=== PATIENT | male | born 1965 | race Caucasian/White ===

== ENCOUNTER 2021-10-26 14:37 | Outpatient (CLI) | payer OTHER, SELFPAY ==
--- NOTE | 2021-10-26 14:30 | CRLHL7_ITS ---
For Patients: As a result of the Cures Act, medical imaging exams and procedure reports are released immediately into your electronic medical record. You may view this report before your referring provider. If you have questions, please contact your health care provider. INDICATION: Syncope/stroke. COMPARISON: CT head report 04/22/2021, MRI brain report 10/01/2019. Technique : Multiplanar multisequence MRI of the brain obtained without and with contrast. A total of 15 mL of Dotarem administered IV. Findings : Encephalomalacia and gliosis left perirolandic region and posterior temporal lobe, sequela of remote infarct, with blood breakdown products. No evidence of acute ischemia. No acute intracranial hemorrhage or abnormal extra-axial fluid collection. No midline shift or mass effect. Unremarkable appearance of the mesial temporal lobes/hippocampal structures. No suspicious enhancement. Mild ex vacuo enlargement of the left lateral ventricle atrium. No hydrocephalus. Mild chronic microangiopathy white matter foci. Midline craniocervical anatomy is unremarkable. Major expected flow voids are visualized. No aggressive osseous lesions. Mild mucosal thickening maxillary and ethmoid sinuses. Normal signal throughout the mastoid air cells. Unremarkable orbits. Impression : 1. No acute ischemic, intracranial hemorrhage, focal mass or suspicious enhancement. 2. Unremarkable appearance of the mesial temporal lobes/hippocampi. 3. Old infarcts left perirolandic region and posterior temporal lobe. 4. Mild chronic microangiopathy changes. Dictated by Eden Luciano MD @ 10/28/2021 8:08:41 AM (Electronically Signed)
--- OUTSIDE RECORDS SUMMARY | 2021-10-26 14:43 | XMS_ITS | Continuity of Care Document ---
:1965 Author Organization [facility] Address [address] [place] [address] Phone Care Team Providers Name Role Phone Heri Sales MD Unavailable Unavailable Medications Medication Instructions Dosage Effective Dates (start - stop) Sta tus Comments No Drug Therapy Prescribed Advance Directives Directive Yes / No Effective Date File Name No Information Encounters Encounter Practice Location Reason(s) Diagnoses Date Provider Provide rs Description For Visit Copied on Encounter Hermilo Silvia Henr[facility] Information -[address] , [address], [place], [address], [place], tel:[phone] [place], [id number], [place]. tel:[phone] Family History Family Member Type Diagnosis Age At Onset No Information Payers Payer name Insurance type Covered green party ID Authorization(s ) No Information Social History Type Description Quantity Date Captured Comments Sex Male Smoking Status No Information Chief Complaint And Reason For Visit No Information Reason For Referral Reason For Referral No Information Plan Of Treatment Date Type Action Status No Information History Of Present Illness Encounter Date Complaint History Of Present I llness No Information Functional Status Date Functional Assessment No Information Medications Administered Medication Instructions Dosage Effective Dates (start - stop) Sta tus Comments No Drug Therapy Prescribed Instructions Date Instruction Additional Informati on No Information Assessments Type Assessment Date No Information Patient Care Teams Name Effective Dates (start - stop) Status M embers No Information
--- OUTSIDE RECORDS SUMMARY | 2021-10-26 14:44 | XMS_ITS | Encounter Summary ---
:1965 Author Organization Department [facility] rs Address [address] [place] [address] Support Name Relationship Address Phone CHARLES VALENCIA Unavailable [address] [place] [address] LAKESHIA RIVAS [address] CHARLES VALENCIA Unavailable [facility] LAKESHIA RIVAS [address] ESTHER CEDILLO [place] [address] Insurance Providers: All historical and current Section Date Range: From patient's date of to the date document was created.This section includes the names of all active insurance providers for the patient. Insurance Type of Plan Start of End of Group Member Insurance Policy P atient's Provider Coverage Name Policy Policy Number ID Provider's Ramirez's Relationship Coverage Coverage Telephone Name to Policy Number Ramirez NAFISA FEP PREFERRED FEP Dec 13, [id number] [facility] AIDA VALENCIA PATIENT PROVIDER STAND 2004 [id number] [place] ORGANIZAT IVET ION (PPO) FAMIL Y BC BS [place] PREFERRED FEP Dec 13, [id number] [phone] [facility] AIDA Monson PATIENT FEP PROVIDER STAND 2004 75 3 [place] ORGANIZAT IVET ION (PPO) [place] PREFERRED FEP Dec 13, 105 [id number] AIDA VALENCIA P ATIENT FEP PROVIDER STAND 2004 75 [phone] [place] ORGANIZAT IVET ION (PPO) FAM [place] PREFERRED FEP Dec 13, 105 [id number] AIDA VALENCIA P ATIENT FEP PROVIDER STAND 2004 75 [phone] [place] ORGANIZAT IVET ION (PPO) FAM [place] PREFERRED FEP Dec 13, [id number] AIDA VALENCIA P ATIENT FEP (IA) PROVIDER STAND 2004 75 [phone] [place] ORGANIZAT IVET ION (PPO) FAMIL Y BCBS [place] PREFERRED FEP Dec 13, [id number] [phone] ANNIE ,NE PATIENT FEP PROVIDER STAND 2003 75 5 [place] ORGANIZAT IVET ION (PPO) FAM CAREMARK PRESCRIPT FEPRX Dec 13, [id number] [phone] [place],NE PATIENT FEP ION 2004 0 75 1 AL ([id number]) RX CAREMARK PRESCRIPT FEPRX Dec 13, [id number] [phone] [place] PATIENT FEP ION 2004 0 75 1 AL ([id number]) RX CAREMARK PRESCRIPT FEP Dec 13, [id number] ANNIE,N E PATIENT FEP [id number] ION RX 2004 [id number] AL CAREMARK PRESCRIPT FEPRX Dec 13, [id number] [phone] WILS ON,NE PATIENT FEP RX ION 2004 0 75 1 AL CAREMARK(6 PRESCRIPT FEP Dec 13, [id number] [id number] [place] LSON,NE PATIENT 36669) ION 2004 0 75 1 AL FEP BLUE DENTAL FEP Dec 13, [id number] [phone] ANNIEN E PATIENT DENTAL INSURANCE BLUE 2003 75 3 AL DENTA L FEP BLUE VISION FEP Dec 13, [id number] [phone] ANNIE,N E PATIENT VISION BLUE 2003 75 7 AL VISIO N SELEC July 25 [id number] [phone] Ermias VALENCIA E PATIENT WEST T WNR 2020 [id number] [place] Selected Encounter This section includes the information on record at [place] for the Encounter. Date/Time Encounter Type Encounter Reason Provider Source Description Feb 23, 2021 PRO PHONE TELEPHONE ICD-10-CM F32.9 GERONIMO GERARDO 01:30 PM CALL 11-20 MIN Major depressive J disorder, single episode, unspecified with Provider Comments: Depressive disorder ([facility] [id number]) IHE Encounter Template Text not used by VA Assessments - Encounter Diagnoses This section includes the primary and secondary diagnoses documented for the Encounter. Date/Time Primary/Secondary Diagnosis Name Provider Source Diagnosis Feb 23, 2021 PRIMARY Major depressive GERONIMO GERARDO [place] 01:30 PM disorder, single HCS episode, unspecified Social History: Smoking Status (Most current) and Tobacco Use (All prior to encounter date) This section includes the most current, and the historical, smoking and tobacco-related health factors from the [place] facility where the Encounter took place.Current Smoking Status This section includes the most current smoking, or tobacco-related health factor, from the [place] facility where the Encounter took place. Date/Time Current Smoking Status Comment Facility Jun 09, 2020 02:01 PM VA-TOBACCO USER SOME DAYS [facility] Tobacco Use History This section includes a history of the smoking, or tobacco- related health factors, that were collected on or before the date of the Encounter. The data comes from the [place] facility where the Encounter took place. 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 [facility] Jun 09, 2020 02:01 PM VA-TOBACCO USE MED NO [facility] Jun 09, 2020 02:01 PM VA-TOBACCO USER SOME DAYS [facility] Jun 25, 2019 01:39 PM VA-TOBACCO FORMER USER [facility] Jun 25, 2019 01:39 PM VA-TOBACCO QUIT < 1 YEAR [facility] August 02, 2018 01:49 PM VA-TOBACCO NEVER USED [facility] Jul 07, 2016 10:42 AM LIFETIME NON-TOBACCO USER [facility] Apr 15, 2015 12:38 PM FORMER TOBACCO USE >1Y <7Y [facility] Advance Directives: All historical and current Section Date Range: From patient's date of to the date document was created. This section includes ALL of a patient's completed or amended [place] Advance and Rescinded Directives. The entries below indicate that a directive exists for the patient, but an actual copy is not included with this document. The data comes from all [place] facilities. Date Advance Directives Provider Source Feb 22, 2007 ADVANCE DIRECTIVE JAELYN RAPHAEL [facility] Encounter Notes: All associated encounter notes This section contains the clinical notes associated to the Encounter. Date/Time Encounter Note(s) Provider Source Feb 23, 2021 01:36 PM PHARMACY NOTE: GERONIMO GERARDO [facility] LOCAL TITLE: PHARM MED MONITORING STANDARD TITLE: PHARMACY NOTE DATE OF NOTE: FEB 23, 2021@13:36 ENTRY DATE: FEB 23, 2021@13:36:44 AUTHOR: GERONIMO GERARDO COSIGNER: URGENCY: STATUS: COMPLETED REAL VALENCIA - Verified name, last 4, REASON FOR PHONE CALL/DISCUSSION WITH PATIENT: Phone call with . Shannon zabala was last seen by Dr. Badillo on 06/10/20 for PTSD and MDD with plan: -melatonin 9mg hs sleep -trazodone 50mg HS sleep Phone visit with over the phone to discu ss mental health symptoms and medications. Real reports that he's been doing fine since his last appointment with Dr. Badillo. He notes carmencita t he has been taking his medications as prescribed. He works with [facility] f or psychiatry and works with non-az provider in his hometown for primary care. He is working with his primary care provider on his PTSD symptoms and medications. Real stat es that he is planning to transfer his care down to the [facility]. He does state that he is sleeping fine, feels like the medications help hi m sleep well at night. He notes that he continues to take warfarin, had a stroke in 2019 and has a Factor V disease. He reports that he is taking a number of med ications from his primary care provider, however, he doesn't have his whole med list with him at this time. He states he will send his medication list to us in a secure message. Elisha man is planning to follow up in [place], declines need for follow up appoint ment at this time. Review of Systems: Medication Compliance: Missed or extra doses in the past two weeks: Non e, confirms compliance PRN medication use: New or increased medication side effects: none r eported OBJECTIVE: Mental health diagnosis and relevant diagnosis: Chronic post-traumatic stress disorder following combat Stroke H/O: attempted suicide Depressive disorder Vitals: BP: 138/87 (08/27/2019 13:07) P: 61 (08/27/2019 13:07) RR: 16 (02/19/2019 10:32) TEMP: 99.4 F [37.4 C] (08/27/2019 13:07) WT: 310.2 lb [141.0 kg] (02/19/2019 10:32) HT: 75 in [190.5 cm] (08/16/2018 12:29) BMI: 38.9 Therapeutic Goals: -Minimize potential for medication-related adver se effects -Maintain the lowest possible degree of depressi ve symptomology in order to minimize risk of later relapse -Sustained remission and prevention of relapse -Improvement in interpersonal relationships and psychosocial functioning -Eliminate or improve modifiable suicide risk fa ctors -Enhanced engagement in treatment through self-m anagement strategies (nutrition, exercise, bibliotherapy, sleep hygie ne, tobacco use, caffeine use, alcohol use and abuse, pleasurable activities) ASSESSMENT: 55 y/o MALE with hx of PTSD and MDD- stable at t his time, declines need for therapy changes at this time, [facility]: 1. Medications -Continue melatonin 9mg hs sleep -Continue trazodone 50mg hs sleep 2. Counseling -Patient aware if symptoms worsen or any SI/HI present that they should call 11-11-1, report to [place]-ED or contact the National Suicide Prevention Hotline [2-395-238-zrrs (4339)] and press 1 for s 3. Medication Reconciliation: Medication use rev iewed. Duplicate and non-chronic, medications removed. List o ffered, declined. 4. RTC as scheduled as needed [place] educated, verbalized understanding/compr ehension, and agreed with above plan. Time spent: 15 minutes MRT5 - Allergies/ADRs FACILITY ALLERGY/ADR -------- [facility] NO KNOWN ALLERGIES [facility] No Known Allergies MRR1 - Med Reconciliation INCLUDED IN THIS LIST: Alphabetical list of acti ve outpatient prescriptions dispensed from this [place] (local) and dispensed from another [place] or [facility] facility (remote) as well as inpatient orders (local pending and active), local clinic medications, locally docum ented non-VA medications, and local prescriptions that have or bee n discontinued in the past 90 days. Non-VA Meds Last Documented On: August 08, 2019 NOTE The display of VA prescriptions dispe nsed from another [place] or [facility] facility (remote) is limited to active outpa tient prescription entries matched to National Drug File at the originating site and may not include some items such as investigational drugs, compou nds, etc. NOT INCLUDED IN THIS LIST: Medications self-ente red by the patient into personal health records (i.e. [email or web address].com) are NOT included in this list. Non-VA medications documented outside this [place], remote inpatient orders (regardless of status) and remote clinic medications are NOT included in this list. The patient and provider must always discuss medications the patient is taking, regardless of where the medication was dispensed or obtained. OUTPT MELATONIN 3MG CAP/TAB (Status = Pending) TAKE 3 BY MOUTH AT BEDTIME FOR SLEEP TAKE 1 H OUR PRIOR TO BEDTIME OR DIRECTED BY PROVIDER Login Date: 02/23/21 Qty/Days Supply: 300/90 Refills Ordered: 3 Non-VA SILDENAFIL CITRATE 100MG TAB TAKE ONE TABLET BY MOUTH DIRECTED Medication prescribed by Non-VA provider. OUTPT SUMATRIPTAN SUCCINATE 100MG TAB (Status = Active) TAKE ONE TABLET BY MOUTH DIRECTED AT ONSET O F HEADACHE, MAY REPEAT ONCE IN 2 HOURS IF NO RELIEF MAXIMUM DOS E: 100 MG PER DOSE; 200 MG PER 24 HOURS, LIMIT USE TO <10 DAY S PER MONTH TO AVOID MEDICATION OVERUSE HEADACHE Rx# [id number] Last Released: 01/08/21 Qty/Days Hernandez pply: Rx Expiration Date: 01/06/22 Refills Remainin OUTPT TRAZODONE HCL 50MG TAB (Status = ) TAKE ONE TABLET BY MOUTH AT BEDTIME FOR SLEEP Rx# [id number] Last Released: 01/23/20 Qty/Days Hernandez pply: Rx Expiration Date: 01/20/21 Refills Remainin OUTPT TRAZODONE HCL 50MG TAB (Status = Pending) TAKE ONE TABLET BY MOUTH AT BEDTIME FOR SLEEP Renewed from Rx# [id number] Qty/Days Supply: Login Date: 02/23/21 Refills Ordered: 3 Non-VA WARFARIN (COUMADIN) BRAND NAME TAB TAKE BY MOUTH AT 5PM Patient wants to buy from Non-VA pharmacy. Medication prescribed by Non-VA provi liv. as directed SUPPLIES PBM PharmD Pharmacotherapy Rem V11: PHARMACIST INTERVENTIONS: DEPRESSION Medication monitoring, no dosage change require d, continue to monitor and assess. POST-TRAUMATIC STRESS DISORDER (PTSD) Medication monitoring, no dosage change require d, continue to monitor and assess. /joey/ SHARON BROOKSD CLINICAL PRE FABRICATOR Signed: 02/23/2021 16:30
--- OUTSIDE RECORDS SUMMARY | 2021-10-26 14:44 | XMS_ITS | Encounter Summary ---
:1965 Author Organization [facility] rs Address [address] [place] [address] Support Name Relationship Address Phone CHARLES VALENCIA Unavailable [address] [place] [address] LAKESHIA RIVAS [address] CHARLES VALENCIA Unavailable [address] [place]ESH[place] RIVAS [address] ESTHER [place] [address] Insurance Providers: All historical and current Section Date Range: From patient's date of to the date document was created.This section includes the names of all active insurance providers for the patient. Insurance Type of Plan Start of End of Group Member Insurance Policy P atient's Provider Coverage Name Policy Policy Number ID Provider's Ramirez's Relationship Coverage Coverage Telephone Name to Policy Number Ramirez ANTHAVA FEP PREFERRED FEP Dec 13, [id number] AIDA VALENCIA PATIENT PROVIDER STAND 2004 [id number] AL ORGANIZAT IVET ION (PPO) FAMIL Y BC BS [place] PREFERRED FEP Dec 13, [id number] [phone] [facility] AIDA Monson PATIENT FEP PROVIDER STAND 2004 75 3 AL ORGANIZAT IVET ION (PPO) [place] PREFERRED FEP Dec 13, [id number] AIDA VALENCIA P ATIENT FEP PROVIDER STAND 2004 75 [phone] AL ORGANIZAT IVET ION (PPO) FAM [place] PREFERRED FEP Dec 13, 105 [id number] AIDA VALENCIA P ATIENT FEP PROVIDER STAND 2004 75 [phone] AL ORGANIZAT IVET ION (PPO) FAM [place] PREFERRED FEP Dec 13, 105 [id number] 800 AIDA VALENCIA P ATIENT FEP (IA) PROVIDER STAND 2004 75 [phone] AL ORGANIZAT IVET ION (PPO) FAMIL Y BCBS [place] PREFERRED FEP Dec 13, [id number] [phone] ANNIE ,NE PATIENT FEP PROVIDER STAND 2003 75 5 AL ORGANIZAT IVET ION (PPO) FAM [employer] PRESCRIPT FEPRX Dec 13, [id number] [phone] [place] PATIENT FEP ION 2004 0 75 1 AL ([id number]) RX CAREMARK PRESCRIPT FEPRX Dec 13, [id number] [phone] WIL[place] ON,[place] PATIENT FEP ION 2004 0 75 1 AL ([id number]) RX CAREMARK PRESCRIPT FEP Dec 13, [id number] ANNIE,N E PATIENT FEP [id number] ION RX 2004 0 [id number] AL CAREMARK PRESCRIPT FEPRX Dec 13, [id number] [phone] WILS ON,NE PATIENT FEP RX ION 2004 0 75 1 AL CAREMARK(6 PRESCRIPT FEP Dec 13, [id number] [phone] [place] LSON,[place] PATIENT 48[address]) ION 2004 0 75 1 AL FEP BLUE DENTAL FEP Dec 13, [id number] [phone] ANNIE,N E PATIENT DENTAL INSURANCE BLUE 2003 75 3 AL DENTA L FEP BLUE VISION FEP Dec 13 [id number] [phone] ANNIEN E PATIENT VISION BLUE 2003 75 7 AL VISIO N SELEC July 25 [id number] [phone] ANNIEN E PATIENT WEST T WNR 2020 [id number] AL Selected Encounter This section includes the information on record at [place] for the Encounter. Date/Time Encounter Type Encounter Reason Provider Source Description Jan 05, 2021 12:38 Outpatient ADMIN PAT ACTIVTIES ELIER CHAIREZ [facility] Encounter Template Text not used by [place] Plan of Treatment: Future Appointments (+ 6 months) and Future Tests (+/- 45 days) The Plan of Treatment section includes future care activities for the patient from all VA treatmentfacilities. This section includes future appointments and future orders which are active, pending orscheduled.Future Appointments This section includes appointments that were scheduled to occur 6 months from the date of the Encounter, up to a maximum of 20 appointments. The data comes from all [place] treatment facilities. Appointment Date/Time Appointment Type Appointment Facili ty Name Feb 23, 2021 01:10 PM AMBULATORY - PSYCHIATRY [facility] Feb 23, 2021 01:30 PM AMBULATORY - PSYCHIATRY [facility] Social History: Smoking Status (Most current) and Tobacco Use (All prior to encounter date) This section includes the most current, and the historical, smoking and tobacco-related health factors from the [place] facility where the Encounter took place.Current Smoking Status This section includes the most current smoking, or tobacco-related health factor, from the [place] facility where the Encounter took place. Date/Time Current Smoking Status Comment Facility Jun 09, 2020 02:01 PM VA-TOBACCO USER SOME DAYS [facility] Tobacco Use History This section includes a history of the smoking, or tobacco- related health factors, that were collected on or before the date of the Encounter. The data comes from the [place] facility where the Encounter took place. 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 [facility] Jun 09, 2020 02:01 PM VA-TOBACCO USE MED NO [facility] Jun 09, 2020 02:01 PM VA-TOBACCO USER SOME DAYS [facility] Jun 25, 2019 01:39 PM VA-TOBACCO FORMER USER [facility] Jun 25, 2019 01:39 PM VA-TOBACCO QUIT < 1 YEAR S [facility] August 02, 2018 01:49 PM VA-TOBACCO NEVER USED [facility] Jul 07, 2016 10:42 AM LIFETIME NON-TOBACCO USER [facility] Apr 15, 2015 12:38 PM FORMER TOBACCO USE >1Y <7Y [facility] Advance Directives: All historical and current Section Date Range: From patient's date of to the date document was created. This section includes ALL of a patient's completed or amended [place] Advance and Rescinded Directives. The entries below indicate that a directive exists for the patient, but an actual copy is not included with this document. The data comes from all [facility]. Date Advance Directives Provider Source Feb 22, 2007 ADVANCE DIRECTIVE JAELYN RAPHAEL [facility] Encounter Notes: All associated encounter notes This section contains the clinical notes associated to the Encounter. Date/Time Encounter Note(s) Provider Source Jan 05, 2021 12:38 PM EDUCATION NOTE: ELIER CHAIREZ [facility] LOCAL TITLE: [facility] EDUCATION NOTE STANDARD TITLE: EDUCATION NOTE DATE OF NOTE: JAN 05, 2021@12:38 ENTRY DATE: JAN 05, 2021@12:38:33 AUTHOR: ELIER CHAIREZ EXP COSIGNER: URGENCY: STATUS: COMPLETED The was offered [facility] educati on and support for [place] virtual care modalities. Type of Visit: Phone Time spent: ... 6 mins VVC Norman called typewriter repairer to do a VVC test call on his ipad, which was unsuccessful. Norman did download VA video connect holli on his ipad from the holli store. Norman stated that something was not wo rking with is tablet and that he would call the Health hub back in a few minutes. /joey/ ELIER CHAIREZ [facility] BAKER TEST Signed: 01/05/2021 12:41
--- OUTSIDE RECORDS SUMMARY | 2021-10-26 14:44 | XMS_ITS | Continuity of Care Document ---
:1965 Author Organization [facility] Care Team Providers Name Role Phone [facility] Unavailable Unavailable Problems Combined list of problems from Department of Defense and Veterans Affairs facilities. It does not include entries that were removed or entered in error. Problem Status Onset Problem Date of Comments Source Date Type Resolution History of Active Condition Sep 01, [facility] Entered [facility]CS By: MARISOL GRANADO Comment: Adenamatous Polpys recheck 2019. Abnormal saccadic Active Condition [facility] Adjustment [place] Disorder [facility] Unspecified * (ICD-9-CM 309.9) Cervical pain Active [facility] Chronic Active [facility] post-traumatic [facility] stress disorder following combat Cognitive Disorder Active Condition [place] (ICD-9-CM [facility] 294.9) Concussion with Active Condition [place] loss of [facility] consciousness of unspecified duration (ICD-9-CM 850.5) Depressive Active Condition [facility] disorder [facility] Dry eyes Active [facility] DVT - Deep vein Active [facility] thrombosis of HCS lower limb Erectile Active [facility] Dysfunction (SCT HCS 648065821) Factor V Leiden Active Condition [facility] mutation [facility] Foot pain (SNOMED [place] 55326641) [facility] Gout [facility] H/O: attempted Active [facility] suicide [facility] Headache Active [facility] Headaches * Active Condition [place] (ICD-9-CM 784.0) [facility] Hearing loss Active [facility] Hearing loss * Active Condition [place] (ICD-9-CM 389.9) [facility] History of kidney Active [facility] stone [facility] Low back pain Active [facility] Low back pain Active Condition [place] (SNOMED [place] [facility] [id number]) Obstructive sleep Active Condition [facility] apnea [facility] Pain in thoracic Active Condition [facility] spine HCS Personal History Active [place] of Venous [facility] Thrombosis and Embolism (ICD-9-CM V12.51) Presbyopia Active Condition [facility] HCS Primary Active Condition [place] Hypercoagulable [facility] State Psoriasis Active Condition [facility] HCS Rosacea Active Condition [facility] HCS Scoliosis Active Condition [facility] HCS Sinusitis Active Condition [facility] HCS Sleep Apnea ([facility] Active Condition [facility] [id number]) HCS Stroke Active Condition Oct 02, [facility] 2019 Entered HCS By: ARELIS SEYMOUR Comment: Cerebro Vascular Accident At [facility] Tension-type Active Condition [facility] headache HCS Tinnitus Active Condition [facility] HCS Tinnitus * Active Condition [place] (ICD-9-[place] 388.30) [place] [facility] 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 Pt should be deployable. dermatitis due to Active Condition Topical D oD drugs and steroids medicines visit for: Inactive Condition [facility] screening exam viral disease smallpox visit for: Inactive Condition [facility] services physical skin disorder Active Condition DoD exanthem Diagnosis: active Diagnosis [place] ICD-10-CM F43.20 [facility] Adjustment disorder, unspecifiedwith Provider Comments: Adjustment disorder, unspecified Diagnosis: active Diagnosis [place] ICD-10-[place] F43.10 [facility] Post-traumatic stress disorder, unspecifiedwith Provider Comments: Post-Traumatic Stress Disorder, unspecified Diagnosis: active Diagnosis [place] F43.20 [place] [facility] Adjustment disorder, unspecifiedwith Provider Comments: Adjustment Disorder, unspecified Diagnosis: active Diagnosis [place] ICD-10-CM Z13.9 [facility] Encounter for screening, unspecifiedwith Provider Comments: Encounter for Screening, unspecified Diagnosis: active Diagnosis [facility] ICD-10-CM F32.9 HCS Major depressive disorder, single episode, unspecifiedwith Provider Comments: Depressive disorder ([facility] [id number]) Diagnosis: active Diagnosis [facility] ICD-10-CM F33.0 HCS Major depressive disorder, recurrent, mildwith Provider Comments: Major Depressive Disorder, Recurrent, Mild Diagnosis: active Diagnosis [facility] ICD-10-CM Z23 HCS Encounter for immunizationwith Provider Comments: Encounter for Immunization Medications Combined list of outpatient medications from Department of Defense and Veterans Affairs facilities. Medications provided include 1) outpatient medications from the last 15 months, and 2) patient-reported medications. Medication Details Route Status Patient Prescription Prescription Last Ordering Order Source Instructions Expires Number Dispense Provider Date Date ALLOPURINOL Active [id number] RUNZHEIME / Pharmac (ALLOPURINO 1 R, 2020 y Data L), 300 MG, Transac TABLET, tion ORAL, Service [employer], y 500 ea. BOTTLE ALLOPURINOL Active [id number] RUNZHEIME / Pharmac (ALLOPURINO 1 R, 2020 y Data L), 300 MG, Transac TABLET, tion ORAL, Service [employer], y 500 ea. BOTTLE ALLOPURINOL Active [id number] RUNZHEIME / Pharmac (ALLOPURINO 2 R, 2021 y Data L), 300MG, Transac TABLET, tion ORAL, Service 'S Facilit LAB, 500 y ea. BOTTLE ALLOPURINOL Active [id number] RUNZHEIME / Pharmac (ALLOPURINO 2 R, 2021 y Data L), 300MG, Transac TABLET, tion ORAL, Service 'S Facilit LAB, 500 y ea. BOTTLE ALLOPURINOL Active [id number] RUNZHEIME / Pharmac (ALLOPURINO 2 R, 2021 y Data L), 300MG, Transac TABLET, tion ORAL, Service 'S Facilit LAB, 500 y ea. BOTTLE ALLOPURINOL Active [id number] RUNZHEIME / Pharmac (ALLOPURINO 2 R, 2021 y Data L), 300MG, Transac TABLET, tion ORAL, Service 'S Facilit LAB, 500 y ea. BOTTLE ASPIRIN TAKE TWO ORALLY ACTIVE SAMANTA,AZB [place] 325MG TABLETS ER A 2012 [facility] TAB,EC BY MOUTH HCS ATORVASTATI Active [id number] RUNZHEIME Pharmac N CALCIUM 2 R, 2021 y Data (atorvastat Transac in tion calcium), Service 40 MG, Facilit TABLET, y ORAL, LUPIN PHARMACEU, 500 ea. BOTTLE ATORVASTATI Active [id number] RUNZHEIME / Pharmac N CALCIUM 2 R, 2021 y Data (atorvastat Transac in tion calcium), Service 40 MG, Facilit TABLET, y ORAL, LUPIN PHARMACEU, 500 ea. BOTTLE ATORVASTATI Active [id number] RUNZHEIME / Pharmac N CALCIUM 2 R, 2021 y Data (atorvastat Transac in tion calcium), Service 40 MG, Facilit TABLET, y ORAL, LUPIN PHARMACEU, 500 ea. BOTTLE ATORVASTATI Active [id number] RUNZHEIME / Pharmac N CALCIUM 1 R, 2020 y Data (atorvastat Transac in tion calcium), Service 40 MG, Facilit TABLET, y ORAL, LUPIN PHARMACEU, 500 ea. BOTTLE ATORVASTATI Active [id number] RUNZHEIME / Pharmac N CALCIUM 1 R, 2020 y Data (atorvastat Transac in tion calcium), Service 40 MG, Facilit TABLET, y ORAL, LUPIN PHARMACEU, 500 ea. BOTTLE CHLORTHALID Active [id number] LEITHER, 2/ Pharmac ONE 2 2021 y Data (chlorthali Transac done), 25 tion MG, TABLET, Service ORAL, Facilit ASCEND y LABORATO, 100 ea. BOTTLE CHLORTHALID Active [id number] LEITHER, 09/11 7/ Pharmac ONE 2021 y Data (chlorthali Transac done), 25 tion MG, TABLET, Service ORAL, Facilit ASCEND y LABORATO, 100 ea. BOTTLE ENOXAPARIN Active [id number] RUNZHEIME 08/0 2/ Pharmac SODIUM 1 R, 2020 y Data (ENOXAPARIN Transac SODIUM), tion 120MG/.8ML, Service DISP SYRIN, Facilit SUB-Q, y WINTHROP US, 0.8 ml SYRINGE ENOXAPARIN Active [id number] RUNZHEIME 070 4/ Pharmac SODIUM 1 R, 2020 y Data (ENOXAPARIN Transac SODIUM), tion 120MG/.8ML, Service DISP SYRIN, Facilit SUB-Q, y WINTHROP US, 0.8 ml SYRINGE GABAPENTIN Active [id number] RUNZHEIME 07/12 Pharmac (gabapentin 2 R, 2021 y Data ), 300 MG, Transac CAPSULE, tion ORAL, [employer] Facilit 500 ea. y BOTTLE GABAPENTIN Active [id number] RUNZHEIME 9 Pharmac (gabapentin 1 R, 2020 y Data ), 300 MG, Transac CAPSULE, tion ORAL, [employer] Facilit 500 ea. y BOTTLE GABAPENTIN Active [id number] RUNZHEIME 04/13 7 Pharmac (gabapentin 2 R, 2021 y Data ), 300 MG, Transac CAPSULE, tion ORAL, Service TIME-CAP Facilit LABS, 500 y ea. BOTTLE MELATONIN TAKE ORAL ACTIVE 02/24/2022 [id number] KOKETT,GE 02/25/ ST. 3MG CAP/TAB THREE BY 1 RARD J 2020 CLOU D MOUTH AT [facility] BEDTIME FOR SLEEP TAKE 1 HOUR PRIOR TO BEDTIME OR DIRECTED BY PROVIDER MODERNA Active [id number] ATTARIAN, Pharmac COVID (12Y 2 2021 y Data UP)VAC(EUA) Transac (COVID-19 tion vaccine, Service mRNA, Facilit [id number], y LNP-S (Moderna)/P F), 100MCG/0.5, VIAL, INTRAMUSC, MODERNA US, INC, 5 ml VIAL POTASSIUM Active [id number] LEITHER, Pharmac CHLORIDE 1 2020 y Data (potassium Transac chloride), tion 10 MEQ, TAB Service ER PRT, Facilit ORAL, SUN y PHARMACEUTI , 100 ea. BOTTLE POTASSIUM Active [id number] RUNZHEIME 01/18 / Pharmac CHLORIDE 1 R, 2020 y Data (potassium Transac chloride), tion 20 MEQ, Service TABLET ER, Facilit ORAL, SLATE y RUN PHARM, 100 ea. BOTTLE POTASSIUM Active [id number] RUNZHEIME 04/14 / Pharmac CHLORIDE 2 R, 2021 y Data (potassium Transac chloride), tion 20 MEQ, Service TABLET ER, Facilit ORAL, SLATE y RUN PHARM, 100 ea. BOTTLE POTASSIUM Active [id number] RUNZHEIME 07/13 / Pharmac CHLORIDE 2 R, 2021 y Data (potassium Transac chloride), tion 20 MEQ, Service TABLET ER, Facilit ORAL, SLATE y RUN PHARM, 100 ea. BOTTLE POTASSIUM Active [id number] RUNZHEIME 10/06 / Pharmac CHLORIDE 2 R, 2021 y Data (potassium Transac chloride), tion 20 MEQ, Service TABLET ER, Facilit ORAL, SLATE y RUN PHARM, 100 ea. BOTTLE SILDENAFIL TAKE ONE ORAL ACTIVE MENTH,SHA 08/07/ ST. CITRATE TABLET [id number] CL[facility]D 100MG TAB BY MOUTH [facility] DIRECTED SUMAtriptan TAKE ONE Active 01/06/2022 [id number] DAWN , 01/10/ St. (U/D) 100 TABLET 1 ARELIS L 2020 Tift MG ORAL TAB BY MOUTH [facility] DIRECTED AT ONSET OF HEADACHE , MAY REPEAT ONCE IN 2 HOURS IF NO RELIEF MAXIMUM DOSE: 100 MG PER DOSE; 200 MG PER 24 HOURS, LIMIT USE TO<10 DAYS PER MONTH TO AVOID MEDICATI O SUMATRIPTAN TAKE ONE ORAL ACTIVE 01/06/2022 [id number] ANAHI SEYMOUR 01/06/ ST. SUCCINATE TABLET 1 TH L 2020 CL[facility] 100MG TAB BY MOUTH [facility] DIRECTED AT ONSET OF HEADACHE , MAY REPEAT ONCE IN 2 HOURS IF NO RELIEF MAXIMUM DOSE: 100 MG PER DOSE; 200 MG PER 24 HOURS, LIMIT USE TO <10 DAYS PER MONTH TO AVOID MEDICATI ON OVERUSE HEADACHE TRAZODONE TAKE ONE ORAL ACTIVE 02/24/2022 [id number] KOKRISTOPHERGE 02/24/ ST. HCL 50MG TABLET 1 KERRY J 2020 [facility] TAB BY MOUTH [facility] AT BEDTIME FOR SLEEP Trazodone TAKE ONE Active 02/24/2022 [id number] KOKETT, 03/02/ St. Hydrochlori TABLET 1 GERONIMO J 2020 Clou d de (Desyrel BY MOUTH [facility] Eq.) Tablet AT 50 mg Oral BEDTIME FOR SLEEP WARFARIN TAKE BY ORAL ACTIVE WILBERTKO, ST. (COUMADIN) MOUTH AT KAYLEE 2016 DARWIN UD BRAND NAME 5PM M [facility] TAB WARFARIN Active [id number] RUNZHEIME 09/22/ Pharmac SODIUM 2 R, 2021 y Data (WARFARIN Transac SODIUM), tion 5MG, Service TABLET, Facilit ORAL, TARO y PHARM [place], 1000 ea. BOTTLE WARFARIN Active [id number] RUNZHEIME 07/02/ Pharmac SODIUM 2 R, 2021 y Data (WARFARIN Transac SODIUM), tion 5MG, Service TABLET, Facilit ORAL, TARO y PHARM [place], 1000 ea. BOTTLE WARFARIN Active [id number] RUNZHEIME 05/19/ Pharmac SODIUM 2 R, 2021 y Data (WARFARIN Transac SODIUM), tion 5MG, Service TABLET, Facilit ORAL, TARO y PHARM [place], 1000 ea. BOTTLE WARFARIN Active [id number] RUNZHEIME 02/16/ Pharmac SODIUM 1 R, 2020 y Data (WARFARIN Transac SODIUM), tion 5MG, Service TABLET, Facilit ORAL, TARO y PHARM [place], 1000 ea. BOTTLE WARFARIN Active [id number] RUNZHEIME 01/16/ Pharmac SODIUM 1 R, 2020 y Data (WARFARIN Transac SODIUM), tion 5MG, Service TABLET, Facilit ORAL, TARO y PHARM [place], 1000 ea. BOTTLE WARFARIN Active [id number] RUNZHEIME 10/19/ Pharmac SODIUM 1 R, 2020 y Data (WARFARIN Transac SODIUM), tion 5MG, Service TABLET, Facilit ORAL, TARO y PHARM [place], 1000 ea. BOTTLE WARFARIN Active [id number] RUNZHEIME 01/13/ Pharmac SODIUM 1 R, 2020 y Data (WARFARIN Transac SODIUM), tion 5MG, Service TABLET, Facilit ORAL, TARO y PHARM [place], 1000 ea. BOTTLE Allergies, Adverse Reactions, Alerts Combined list of allergies from Department of Defense and Veterans Affairs facilities. It does not include entries that were removed or entered in error. Substance Category Reaction Severity Reaction Status Date Comments S ource type Reported No Known Drug Drug active 01/19/2010 Sky Allergies allergy allergy [facility], Zhane [place] Immunizations Combined list of available immunizations from the Department of Defense and Veterans Affairs facilities. Immunization Series Date Administered Site Reaction Lot CVX Drug St atus Comments Source Given By Number Code Product Safety Administrator COVID-19, 03/16/ ATTARIAN, Jaiden US, Not COVID-19, DoD mRNA, LNP-S, 2021 Inc. (MOD) Given mR NA, PF, 100 mcg LNP-S, or 50 mcg PF, 100 dose mcg or 50 mcg dose COVID-19 2 complet MOD; ST . (MODERNA), 2020 ed [id number]; [facility] MRNA, LNP-S, 02 [facility] PF, 100 1 MCG/0.5 ML DOSE COVID-19 1 complet MOD; ST . (MODERNA), 2020 ed [id number]; [facility] MRNA, LNP-S, 02 [facility] PF, 100 1 MCG/0.5 ML DOSE INFLUENZA, complet ST. UNSPECIFIED 2019 ed CL OUD FORMULATION [facility] INFLUENZA, complet ST. INJECTABLE, 2018 ed CL OUD QUADRIVALENT, [facility] PRESERVATIVE FREE INFLUENZA, complet ST. SEASONAL, 2018 ed CLOU D INJECTABLE [facility] INFLUENZA, complet CAMP SEASONAL, 2016 ed RIPL EY INJECTABLE VET LISBETPEDRO LUIS BESTY FACILIT INFLUENZA, complet ST. SEASONAL, 2016 ed CLOU D INJECTABLE [facility] INFLUENZA, complet ST. SEASONAL, 2014 ed CLOU D INJECTABLE [facility] Influenza, 1 64921 141 CSL complet Infl uenza DoD injectable, 2012 1A Biotherapies, ed , Boy [employer] (CSL) inj ectabl Canine e, Madin Kidney, Mayda quadrivalent Canine with Kidney, preservative quadriv al ent with preservat jax INFLUENZA, complet [place] UNSPECIFIED 2012 ed [place] [facility] FORMULATION HC S TDAP complet FOUND IN Do D 2012 ed JLV 528th SPPT BAT (SPEC OP) tetanus 1 06/17/ [id number] 115 Unknown (UNK) complet tetanus DoD toxoid, 2012 5AA ed toxoid, reduced reduced diphtheria diphtheri toxoid, and a toxoid , acellular and pertu is acellular vaccine, pertussis adsorbed vaccine, adsorbed Influenza, 1 34921 141 Unknown (UNK) comp let Influenza DoD injectable, 2011 1A ed , Madin Mayda injectab l Canine e, Madin Kidney, [place] quadrivalent Canine with Kidney, preservative quadriv al ent with preservat jax INFLUENZA, complet [place] UNSPECIFIED 2010 ed [facility] IS [facility] FORM[facility]ATION [facility] S Influenza, 1 12/07/ [id number] 140 Unknown (UNK) comp let Influenza DoD seasonal, 2010 ed , injectable, seasonal , preservative injecta bl free e, preservat jax free influenza 1 12/24/ [id number] 15 Merck (MSD) complet influenza DoD virus 2009 ed virus vaccine, vaccine, split virus split (incl. virus purified (incl. surface purified antigen)-reti surfac e red CODE antigen)- retired CODE TDAP complet [place] 2010 ed [facility] Novel 1 [id number] Novartis complet Novel DoD influenza-H1N 2009 1 Pharmaceutica ed influenza 1-09, all l Delfino. (NOV) -H 1N-, formulations all formulati ons TDAP complet ST. 2009 ed [facility] influenza 1 [id number] 15 Unknown (UNK) compl et influenza DoD virus 2008 1A ed virus vaccine, vaccine, split virus split (incl. virus purified (incl. surface purified antigen)-reti surfac e red CODE antigen)- retired CODE influenza 1 K 15 Unknown (UNK) complet influenza DoD virus 2006 ed virus vaccine, vaccine, split virus split (incl. virus purified (incl. surface purified antigen)-reti surfac e red CODE antigen)- retired CODE hepatitis B 3 05/15/ [id number] 43 [employer]line comple t hepatitis DoD vaccine, 2005 5AB (SKB) ed B adult dosage vaccine , adult dosage influenza 1 UNK 15 Aventis complet influ rachelle DoD virus 2004 [employer] ed virus vaccine, (AVB) vaccine, split virus split (incl. virus purified (incl. surface purified antigen)-reti surfac e red CODE antigen)- retired CODE hepatitis B 2 12/22/ [id number] [address] [facility] t hepatitis DoD vaccine, 2005 5AA (SKB) ed B adult dosage vaccine , adult dosage TD(ADULT) complet A RMY UNSPECIFIED 2004 ed FORMULATION vaccinia 1 11/26/ NONE 75 (NON) Not vaccinia D oD (smallpox) 2004 Given (smallpox vaccine ) vaccine anthrax 5 11/24/ [id number] 24 Emergent complet anthr ax DoD vaccine 2005 [employer] ed vaccine [place] (MIP) typhoid Vi 1 11/18/ [id number] 101 Unknown (UNK) comp let typhoid DoD capsular 2005 ed Vi polysaccharid capsul ar e vaccine polysacch aride vaccine hepatitis A 3 11/18/ [id number] 104 Unknown (UNK) com plet hepatitis DoD and hepatitis 2004 9BA ed A and B vaccine hepatitis B vaccine influenza 1 01/24/ [id number] 15 [facility] t influenza DoD virus 2002 (WAL) ed virus vaccine, vaccine, split virus split (incl. virus purified (incl. surface purified antigen)-reti surfac e red CODE antigen)- retired CODE tetanus and 1 K 09 Unknown (UNK) compl et tetanus DoD diphtheria 2002 ed and toxoids, diphtheri adsorbed, a preservative toxoids , free, for adsorbed, adult use (2 preserv at Lf of tetanus jax fr ee, toxoid and 2 for melody lt Lf of use (2 Lf diphtheria of toxoid) tetanus toxoid and 2 Lf of diphtheri a toxoid) meningococcal 1 K 32 Unknown (UNK) com plet meningoco DoD polysaccharid 2002 ed ccal e vaccine polysacch (MPSV4) aride vaccine (MPSV4) influenza 0 UNK 15 Unknown (UNK) complet influenza DoD virus 2001 ed virus vaccine, vaccine, split virus split (incl. virus purified (incl. surface purified antigen)-reti surfac e red CODE antigen)- retired CODE tetanus and 0 02/10/ [id number] 09 [place] complet tetanus DoD diphtheria 2000 (CON) ed and toxoids, diphtheri adsorbed, a preservative toxoids , free, for adsorbed, adult use (2 preserv at Lf of tetanus jax fr ee, toxoid and 2 for melody lt Lf of use (2 Lf diphtheria of toxoid) tetanus toxoid and 2 Lf of diphtheri a toxoid) anthrax 4 09/02/ [id number] 24 Emergent complet anthr ax DoD vaccine 1999 [facility] ed vaccine [place] ([facility]) tuberculin 1 03/19/ Unknown, UNK 98 Unknown (UNK) com plet tuberculi DoD skin test; 1999 Provider ed n skin unspecified test; formulation unspecif i ed formulati on hepatitis A 2 UNK 52 Unknown (UNK) compl et hepatitis DoD vaccine, 1998 ed A adult dosage vaccine , adult dosage influenza 0 01/30/ UNK 15 Unknown (UNK) complet influenza DoD virus 1998 ed virus vaccine, vaccine, split virus split (incl. virus purified (incl. surface purified antigen)-reti surfac e red CODE antigen)- retired CODE meningococcal 0 UNK 32 Unknown (UNK) com plet meningoco DoD polysaccharid 1998 ed ccal e vaccine polysacch (MPSV4) aride vaccine (MPSV4) anthrax 3 11/27/ [id number] 24 Emergent complet anthr ax DoD vaccine 1998 [facility] ed vaccine [place] ([facility]) anthrax 2 11/13/ [id number] 24 Emergent complet anthr ax DoD vaccine 1998 [facility] ed vaccine [place] ([facility]) anthrax 1 10/29/ [id number] 24 Emergent complet anthr ax DoD vaccine 1998 [facility] ed vaccine [employer] [place] ([facility]) yellow fever 0 06/14/ UNK 37 Unknown (UNK) comp let yellow DoD vaccine 1998 ed fever vaccine typhoid 0 06/14/ UNK 91 Unknown (UNK) complet t yphoid DoD vaccine, 1998 ed vaccine, unspecified unspecif i formulation ed formulati on hepatitis A 1 06/09/ UNK 52 Unknown (UNK) compl et hepatitis DoD vaccine, 1998 ed A adult dosage vaccine , adult dosage trivalent 0 04/25/ UNK 02 Unknown (UNK) complet trivalent DoD poliovirus 1990 ed polioviru vaccine, s live, oral vaccine, live, oral measles, 0 04/25/ UNK 03 Unknown (UNK) complet measles, DoD mumps and 1990 ed mumps and rubella virus rubell a vaccine virus vaccine tetanus and 0 04/23/ UNK 09 Unknown (UNK) compl et tetanus DoD diphtheria 1990 ed and toxoids, diphtheri adsorbed, a preservative toxoids , free, for adsorbed, adult use (2 preserv at Lf of tetanus jax fr ee, toxoid and 2 for melody lt Lf of use (2 Lf diphtheria of toxoid) tetanus toxoid and 2 Lf of diphtheri a toxoid) Encounters Combined list of: 1) Encounters from Department of Veterans Affairs facilities going back up to the last 18 months, not all VA inpatient encounters are included; 2) Encounters from the Department of Defense facilities going back up to 280 months. Location Location Encounter Encounter Reason Attending ADM DC Stat us Disposition Source Details Type Number For Provider Date Date Visit OUTPATIENT [id number] frida JACKSON, 11/25 Released w /o Sky PUL[place]O S Limitations Zhane YANEZ GA([facility] OUTPATIENT [id number] MAIKOL, 11/25 Released w/o Sky CASTANON P Limitations Zhane YANEZ GA(Derm atology ) OUTPATIENT [id number] FRIDA/MAI JACOBSON, 11/25 Released w/o Sky [place] D Limitations Zhane YANEZ GA(Sold ier [facility] [place] ) OUTPATIENT [id number] 09/30 Released T heat with Facilit Work/Duty y Limitations OUTPATIENT [id number] 10/21 Released w /o Theater Limitations Facilit y OUTPATIENT [id number] FLU EDDIE, 01/02 Release d w/o R. W. JENISE Limitations [facility] RADHA Juárez(Inte grated Disabil ity Eval Sys) OUTPATIENT [id number] yannick LAU, 01/19 Released R. W. RYAN peguero with [facility] R Work/Duty [facility] Limitations RADHA Juárez(Agav e Team) OUTPATIENT [id number] Rx for SAHIL, 01/20 Release d w/o R. W. R marielena EDOUARD Limitations Valdemar s brace RADHA Zuniga(Orth opedic Clinic) OUTPATIENT [id number] TINO, 10/12 Released w/o Rubina NARANJO Limitations [facility](E mergenc y Room [facility]) OUTPATIENT [id number] corneal NOBLE, 10/13 Relea sed w/o Rubina NICOLE L Limitations [facility] diana Jacobson(O e phthalm traumat ology) ic iritis OUTPATIENT [id number] KAREEM, 10/13 Released w/o Rubina REYNOSO M. Limitations [facility] Jake(E mergenc y Room [facility]) OUTPATIENT [id number] Notes LAURIE, 09/26 Relea sed Jelena Entered ÓSCAR with [facility] by: Work/Duty [employer] Limitations Antwan, TRINITY( [facility] Support [address] [place] [address]) ------- ------- ------- ------- -- FLU LIKE SYMPTOM S OFFICE O/P [id number] Diagnos Elisha SHAIKH 05/26 ST. EST [id number] is: AMY [facility] MINIMAL ICD-10- [facility] PROB CM Z23 Encount er for immuniz ation<b r/>with Provide r Comment s: Encount er for Immuniz ation Outpatient [id number] Diagnos JEFF SEYMOUR 06/09 ST. Encounter [id number] is: Elisha [facility] ICD-10- [facility] CM F32.9 Major depress jax disorde r, single episode , unspeci fied
with Provide r Comment s: Depress jax disorde r ([facility] [phone]) OFFICE O/P [id number]. Diagnos VERONICADA 06/23 ST. EST [id number] is: LINO [facility] MINIMAL ICD-10- [facility] PROB CM Z23 Encount er for immuniz ation<b r/>with Provide r Comment s: Encount er for Immuniz ation Outpatient [id number] 09/17 ST. Encounter [id number] [facility] Out[facility] [id number] 12/28 ST. Encounter [id number] /2021 [facility] [id number] CONNER CHAIREZ 01/05 ST. Encounter [id number] NA T [facility] OFFICE O/P Diagnos JEFF SEYMOUR 01/05 ST. EST MOD [id number] is: H L [facility] 30-39 MIN ICD-10- [facility] CM F33.0 Major depress jax disorde r, recurre nt, mild
with Provide r Comment s: Major Depress jax Disorde r, Recurre nt, Mild HC PRO 77394-3 Diagnos SATYA GERARDO 02/23 S T. PHONE CALL [phone] is: IVET J [facility] 11-20 MIN ICD-10- [facility] CM F32.9 Major depress jax disorde r, single episode , unspeci fied
with Provide r Comment s: Depress jax disorde r ([facility] [id number]) Outpatient [id number] [place] Encounter [id number] /2022 [facility] Outpatient [id number] [place] Encounter [id number] /2021 [facility] OFFICE O/P [id number] Diagnos HAZEL,KI 09/08 [place] EST [id number] is: PRISCILLA J [facility] V A MINIMAL ICD-10- HCS PROB CM Z13.9 Encount er for screeni ng, unspeci fied
with Provide r Comment s: Encount er for Screeni ng, unspeci fied OFFICE O/P [id number] Diagnos DUMKE,HEAT 09/08 [place] [id number] is: HER EMANUEL OLIS V A 60-74 MIN ICD-10- HCS CM F43.20 Adjustm ent disorde r, unspeci fied
with Provide r Comment s: Adjustm ent Disorde r, unspeci fied Outpatient [id number] 10/08 [place] Encounter [id number] /2021 [facility] HC PRO [id number] Diagnos MARCO SANCHEZ 10/14 [place] PHONE CALL [phone] is: THEW JUSTEN S [facility] 11-20 MIN 80 ICD-10- [facility] CM F43.10 Post-tr aumatic stress disorde r, unspeci fied
with Provide r Comment s: Post-Tr aumatic Stress Disorde r, unspeci fied PRO [id number] Diagnos YVONNE HUFFMAN 10/20 [place] PHONE CALL [id number] is: ALE PORT S 11-20 MIN 72 ICD-10- CBOC CM F43.20 Adjustm ent disorde r, unspeci fied
with Provide r Comment s: Adjustm ent disorde r, unspeci fied Procedures Combined list of: 1) Procedures from [facility] facilities going back up to the last 18 months, not all [place] non-surgical procedures are included; 2) All procedures from the Department of Defense facilities. Procedure Procedure Type Code Date Perfomer Comments [facility] e Ophthalmological Ophthalmological 56826 10/14/19 Roxana BHANDARI Prior Patient Start Prior Patient Start 12 KARI K Intermediate Level Intermediate Level Care Care Influenza Split 01/03/20 SIL ROMAN oD Virus Vaccine 0.5mL 10 A Dosage Intramuscular Preservative Free Immunization Immunization 22547 01/03/20 SIL ROMAN oD Administration By Administration By 10 A Injection, One Injection, One Vaccine Vaccine Social History Combined list of available smoking, tobacco, and other social [facility]. Social History Type Response Date Comment Source Tobacco smoking status [facility]-TOBACCO NEVER USED 09/08/2021 [facility] NHIS History of tobacco use [place]-TO[place] DOESNT USE 06/09/2020 [facility] [place] 30 MIN WAKEUP History of tobacco use [place]-TO[place]ACCO QUIT < 1 06/25/2019 [facility] YEAR History of tobacco use [place]-TO[place]ACCO NEVER USED 08/02/2018 [facility] History of tobacco use LIFETIME NON-TOBACCO 07/07/2016 [facility] USER History of tobacco use FORMER TOBACCO USE >1Y 04/15/2015 [facility] <7Y History of tobacco use LIFETIME NON-TOBACCO 12/07/2010 [facility] USER History of tobacco use FORMER TOBACCO USE >1Y 06/05/2008 [facility] <7Y This section is an DoD empty social history section. Plan of Care List of future care activities from Department of [facility] facilities. Additional future care activities may be listed in the Assessment and Plan section. Date/Time Care Activity Care Activity Detail Facility 10/27/2021 AMBULATORY - PSYCHIATRY AMBULATORY - PSYCHIATRY [facility] Advance Directives List of completed, amended, or rescinded Advance Directives on record at Department of [facility] facilities. An actual copy of the Directive is not included. Date Advance Directive Provider Source 02/22/2007 ADVANCE DIRECTIVE JAELYN RAPHAEL [facility]
--- OUTSIDE RECORDS SUMMARY | 2021-10-26 14:44 | XMS_ITS | Encounter Summary ---
:1965 Author Organization [facility] rs Address [address] [place] [address] Support Name Relationship Address Phone CHARLES VALENCIA Unavailable [address] [place] [address] LAKESHIA RIVAS [address] CHARLES VALENCIA Unavailable [address] LAKESH[place] RIVAS [phone] ESTHER [place] [address] Insurance Providers: All historical and current Section [...] Policy Number Ramirez ANTHAVA FEP PREFERRED FEP Oct , [id number] AIDA VALENCIA PATIENT PROVIDER STAND 2004 [id number] [place] ORGANIZAT IVET ION (PPO) FAMIL Y [place] BS [place] PREFERRED FEP Oct , [id number] [phone] [facility] AIDA Monson PATIENT FEP PROVIDER STAND 2004 75 3 [place] ORGANIZAT IVET ION (PPO) [place] PREFERRED FEP Oct 03, 105 [id number] AIDA VALENCIA P ATIENT FEP PROVIDER STAND 2004 75 [phone] [place] ORGANIZAT IVET ION (PPO) FAM [place] PREFERRED FEP Oct 03, 105 [id number] AIDA VALENCIA P ATIENT FEP PROVIDER STAND 2004 75 [phone] [place] ORGANIZAT IVET ION (PPO) FAM [place] PREFERRED FEP Oct 03, 105 [id number] AIDA VALENCIA P ATIENT FEP (IA) PROVIDER STAND 2004 75 [phone] [place] ORGANIZAT IVET ION (PPO) FAMIL Y [place] PREFERRED FEP Dec 13, [id number] [phone] ANNIE ,NE PATIENT FEP PROVIDER STAND 2003 75 5 [place] ORGANIZAT IVET ION (PPO) FAM CAREMARK PRESCRIPT FEPRX Dec 13, [id number] [phone] WILS ON,NE PATIENT FEP ION 2004 0 75 1 AL ([id number]) RX CAREMARK PRESCRIPT FEPRX Dec 13, [id number] [phone] WIL[place] ON,NE PATIENT FEP ION 2004 0 75 1 AL ([id number]) RX CAREMARK PRESCRIPT FEP Dec 13, [id number] [phone] ANNIE,N E PATIENT FEP [id number] ION RX 2004 [id number] AL CAREMARK PRESCRIPT FEPRX Dec 13, [id number] [phone] WILS ON,NE PATIENT FEP RX ION 2004 0 75 1 AL CAREMARK(6 PRESCRIPT FEP Dec 13, [id number] [phone] [place] LSON,NE PATIENT [id number]) ION 2004 0 75 1 [place] FEP BLUE DENTAL FEP Dec 13, [id number] [phone] ANNIEN E PATIENT DENTAL INSURANCE BLUE 2003 75 3 AL DENTA L FEP BLUE VISION FEP Dec 13, [id number] [phone] ANNIEN E PATIENT VISION BLUE 2003 75 7 AL VISIO N SELEC July 25, [id number] [phone] Ermias VALENCIA E PATIENT WEST T WNR 2020 [id number] [place] Selected Encounter This section includes the information on record at [place] for the Encounter. Date/Time Encounter Type Encounter Reason Provider Source Description Jan 05, 2021 OFFICE O/P EST MENTAL HEALTH ICD-10-CM F33.0 ARELIS BADILLO 02:31 PM MOD 30-39 MIN CLINIC - IND Major depressive disorder, recurrent, mild with Provider Comments: Major Depressive Disorder, Recurrent, Mild IHE Encounter Template Text not used by VA Assessments - Encounter Diagnoses This section includes the primary and secondary diagnoses documented for the Encounter. Date/Time Primary/Secondary Diagnosis Name Provider Source Diagnosis Jan 05, 2021 PRIMARY Major depressive SHARI YING [place] 07:54 PM disorder, HCS recurrent, mild Jan 05, 2021 SECONDARY Headache, SHARI YING [place] 07:54 PM unspecified HCS Jan 05, 2021 SECONDARY Personal history SHARI YINGU [facility] 07:[facility] PM of H[facility] [place] Jan 05, 2021 SECONDARY Post-traumatic DILSHARI HUERTAS [facility] 07:54 PM stress disorder, HCS chronic Jan 05, 2021 SECONDARY Prsnl hx of TIA DILSHARI HUERTAS [facility] 07:54 PM (TIA), and cereb HCS infrc w/o resid deficits Plan of Treatment: Future Appointments (+ 6 months) and Future Tests (+/- 45 days) The Plan of Treatment section includes [facility] care [facility] the [facility] [place] [facility] This section includes future appointments and future orders which are active, pending orscheduled.Future Appointments This section includes appointments that were scheduled to occur 6 months from the date of the Encounter, up to a maximum of 20 appointments. The data comes from all [place] treatment facilities. Appointment Date/Time Appointment Type Appointment Facili ty Name Feb 23, 2021 01:10 PM AMBULATORY - PSYCHIATRY [facility] Feb 23, 2021 01:30 PM AMBULATORY - PSYCHIATRY [facility] Social History: Smoking Status (Most current) and Tobacco Use (All prior to encounter date) This section includes the most current, and the historical, smoking and tobacco-related health factors from the [place] facility where the Encounter took place.Current Smoking Status This section includes the most current smoking, or tobacco-related health factor, from the [place] facility where the Encounter took place. Date/Time Current Smoking Status Comment Facility Jun 09, 2020 02:01 PM VA-TOBACCO DOESNT USE [place] 30 MIN WAKEUP [facility] Tobacco Use History This section includes a history of the smoking, or tobacco- related health factors, that were collected on or before the date of the Encounter. The data comes from the [place] facility where the Encounter took place. Date/Time Smoking Status/Tobacco Use Comment Facil ity Jun 09, 2020 02:01 PM VA-TOBACCO USE 5 TO 15 YEARS [facility] Jun 09, 2020 02:01 PM VA-TOBACCO USE ADVICE [facility] Jun 09, 2020 02:01 PM VA-TOBACCO USE OBSTETRICIAN AND GYNAECOLOGIST NO [facility] Jun 09, 2020 02:01 PM VA-TOBACCO USE MED NO [facility] Jun 09, 2020 02:01 PM VA-TOBACCO USER SOME DAYS [facility] Jun 25, 2019 01:39 PM VA-TOBACCO FORMER USER [facility] Jun 25, 2019 01:39 PM [place]-TO[place]AC[place] QUIT < 1 YEAR S [facility] August 02, 2018 01:49 PM VA-TOBACCO NEVER USED [facility] Jul 07, 2016 10:42 AM LIFETIME NON-TOBACCO USER [facility] Apr 15, 2015 12:38 PM FORMER TOBACCO USE >1Y <7Y [facility] Advance Directives: All historical and current Section Date Range: From patient's date of to the date document was created. This section includes ALL of a patient's completed or amended [place] Advance and Rescinded Directives. The entries below indicate that a directive exists for the patient, but an actual copy is not included with this document. The data comes from all [place] facilities. Date Advance Directives Provider Source Feb 22, 2007 ADVANCE DIRECTIVE JAELYN RAPHAEL [facility] Encounter Notes: All associated encounter notes This section contains the clinical notes associated to the Encounter. Date/Time Encounter Note(s) Provider Source Jan 05, 2021 02:31 PM MENTAL HEALTH NOTE: ARELIS BADILLO [facility] LOCAL TITLE: MH PROVIDER NOTE STANDARD TITLE: MENTAL HEALTH NOTE DICT DATE: JAN 05, 2021 ENTRY DATE: JAN 05 1@19:54:42 DICTATED BY: ARELIS BADILLO EXP COSIGNER: URGENCY: STATUS: COMPLETED CHIEF COMPLAINT: Chronic posttraumatic stress di sorder following combat. Status post stroke. Major depre ssive disorder, recurrent, mild. SUBJECTIVE: The patient is a 55-year-old [place] an male who was interviewed on the [facility] today for 17 minutes. He reports that the Trazodone works well for him to help him sleep a t night and he is eating well. He is able to get sleep at night an d he keeps as busy as he can. At this time he denies hearing v oices, denies seeing things, denies being a danger to himself or others. He says that he wants to keep busy, keep going and he says that he and his both got their COVID-19 Vaccination shots. He says that he is doing as well can be. He keeps busy t hroughout the today. He watches television and does other proj ects around the house. And his appetite is good. And he says carmencita t he has lost some weight which he said is a good thing. He sa ys that he has not gone to see his primary care provider. He sa ys We're coming out of the COVID-19 quarantine and he has not g one to his primary care provider yet because of the quarant ine deal. But he said what he does need which used to help him fo r his headaches is this Sumatriptan. He was taking the Sumatript an Succinate 100 mg tablet and the instructions were to take 1 ta blet by mouth as directed at onset of headaches. May repeat in 2 hours if no results. This medication will be ordered for the until he can get to see his primary care provider or at [facility] call his primary care provider so that they can prescribe that medication for him. Sagrario was seen over the [facility] and he ys that he was hearing Dr. Badillo loud and clear. Informed conse nt was obtained by the [place] for this VVC appointment and that the [place] does have access to emergency medical services if nee d be while the session is being held with this VVC appointment. Sagrario's sensorium was clear. He is not in any acute dist ress. PSYCHOTROPIC MEDICATION RECONCILIATION: The tarah ent is considered competent to make informed consent regarding millicent atment and medications. Medication history obtained. Medica tion efficacy was discussed with the patient. Outpatient psychotro pic medications reconciled with the patient at this visit. Contr aindications, side effects and adverse reactions were discusse d. Medication list was reviewed with the patient and a copy of his medications with any changes was given to the patient today. Any discrepancies present were documented and resolv ed. Medications were updated as appropriate. The patient verbali zed understanding. No laboratory tests were ordered as the is not taking any medications that require laborato ry tests. Sagrario takes Trazodone 50 mg at bedtime for sleep. The last time that was filled was January 21, 2020. Sagrario was ad vised to meet or telephone primary care and scheduled an appointm ent with his primary care provider Dr. Koki Vásquez. Also he could get his refills of his Sumatriptan there. But in the meanwhile t he Sagrario will get some Sumatriptan from Dr. Badillo to alleviate his headaches that he has been having lately. [place] had been on Escitalopram before and he got that from a non-VA pharmacy bu t he does not take that medication anymore. DIAGNOSTIC IMPRESSION: 1. Chronic posttraumatic stress disorder followi ng combat. 2. Stroke. 3. Major depression. 4. Headaches. PLAN: [place] will start taking the Sumatriptan Succinate prescribed by Dr. Badillo then he will have a foll owup appointment with Jessee Khalil, pharmacist in 2 months. Caitlin montague appears capable of informed consent. KB CH/Alpha [id number] $END MRT5 - Allergies/ADRs FACILITY ALLERGY/ADR -------- [facility] H[facility] NO KNOWN ALLERGIES [facility] HCS No Known Allergies MRR1 - Med Reconciliation INCLUDED IN THIS LIST: Alphabetical list of acti ve outpatient prescriptions dispensed from this [place] (local) and dispensed from another VA or DoD facility (remote) as well as inpatient orders (local pending and active), local clinic medications, locally docum ented non-VA medications, and local prescriptions that have or bee n discontinued in the past 90 days. Non-VA Meds Last Documented On: August 08, 2019 NOTE The display of VA prescriptions dispe nsed from another VA or DoD facility (remote) is limited to active outpa tient prescription entries matched to National Drug File at the originating site and may not include some items such as investigational drugs, compou nds, etc. NOT INCLUDED IN THIS LIST: Medications self-ente red by the patient into personal health records (i.e. My [employer]) are NOT included in this list. Non-VA medications documented outside this [place], remote inpatient orders (regardless of status) and remote clinic medications are NOT included in this list. The patient and provider must always discuss medications the patient is taking, regardless of where the medication was dispensed or obtained. Non-VA SILDENAFIL CITRATE 100MG TAB TAKE ONE TABLET BY MOUTH DIRECTED Medication prescribed by Non-VA provider. OUTPT SUMATRIPTAN SUCCINATE 100MG TAB (Status = Pending) TAKE ONE TABLET BY MOUTH DIRECTED AT ONSET O F HEADACHE, MAY REPEAT ONCE IN 2 HOURS IF NO RELIEF Take on e tablet by mouth as directed at onset of Headache. May rep eat in 2 hours if no relief. Login Date: 01/05/21 Qty/Days Supply: 270/30 Refills Ordered: 3 OUTPT TRAZODONE HCL 50MG TAB (Status = Active) TAKE ONE TABLET BY MOUTH AT BEDTIME FOR SLEEP Rx# [id number] Last Released: 01/23/20 Qty/Days Hernandez pply: Rx Expiration Date: 01/20/21 Refills Remainin Non-VA WARFARIN (COUMADIN) BRAND NAME TAB TAKE BY MOUTH AT 5PM Patient wants to buy from Non-VA pharmacy. Medication prescribed by Non-VA queta dietrich as directed SUPPLIES /joey/ ARELIS LOMBARDI MD STAFF PSYCHIATRIST Signed: 01/06/2021 08:39 Jan 05, 2021 02:23 PM MENTAL HEALTH NURSING NOTE: ARAVIND FLOREZ [facility] LOCAL TITLE: NURSING NOTE STANDARD TITLE: MENTAL HEALTH NURSING NOTE DATE OF NOTE: JAN 05, 2021@14:23 ENTRY DATE: JAN 05, 2021@14:23:32 AUTHOR: CAROLE FLOREZ EXP COSIGNER: URGENCY: STATUS: COMPLETED DIRECTOR PRODUCT SAFETY did not pre phone/contact to double check the Email Link address or gather clinical reminders. DIRECTOR PRODUCT SAFETY mis-interpreted this holli ointment clinic title as a face to face appointment and was waiting for to arrive in person, to be acknowledged on VET LINK. [place] did not arrive, or check in on vet link due to fact that: is a VVC appointment, not a Face to face . Dr. Badillo alerted of this lack of contact by application integration specialist to . Dr. Badillo will initiate connection via vvc with at 1430. /joey/ CAROLE FLOREZ LPN LICENSED PRACTICAL NURSE Signed: 01/05/2021 14:27 Receipt Acknowledged By: * AWAITING SIGNATURE * ARELIS BADILLO
--- OUTSIDE RECORDS SUMMARY | 2021-10-26 14:44 | XMS_ITS | Encounter Summary ---
:1965 Author Organization [facility] rs Address [address] [place] [id number] Support Name Relationship Address Phone CHARLES VALENCIA Unavailable [address] [place] [address] LAKESHIA RIVAS [address] CHARLES VALENCIA Unavailable [address] [place] [address] ESTHER [place] [address] Insurance Providers: All historical and current Section [...] Ramirez ANTHAVA FEP PREFERRED FEP Dec 13, [id number] [phone] AIDA VALENCIA PATIENT PROVIDER STAND 2004 [id number] [place] ORGANIZAT IVET ION (PPO) FAMIL Y BC BS [place] PREFERRED FEP Dec 13, [id number] [phone] [facility] F[facility] PROVIDER STAND 2004 75 3 [place] ORGANIZ[place] IV[place] I[place] (PP[place]) [place] PREFERRED [place] Oct , 105 [id number] 800 AIDA VALENCIA P ATIENT FEP PROVIDER STAND 2004 75 [phone] [place] ORGANIZ[place] IVET ION (PPO) [place] PREFERRED [place] Oct , 105 [id number] 800 AIDA VALENCIA P ATIENT FEP PROVIDER STAND 2004 75 [phone] [place] ORGANIZAT IVET ION (PPO) FAM [place] PREFERRED FEP Dec 13, 105 [id number] 800 AIDA VALENCIA P ATIENT FEP (IA) PROVIDER STAND 2004 75 [phone] AL ORGANIZAT IVET ION (PPO) FAMIL Y [place] PREFERRED FEP Dec 13, [id number] [phone] ANNIE ,NE PATIENT FEP PROVIDER STAND 2003 75 5 AL ORGANIZAT IVET ION (PPO) FAM CAREMARK PRESCRIPT FEPRX Dec 13, [id number] [phone] [place] PATIENT FEP ION 2004 0 75 1 AL ([id number]) RX CAREMARK PRESCRIPT FEPRX Dec 13, [id number] [phone] [place] PATIENT FEP ION 2004 0 75 1 AL ([id number]) RX CAREMARK PRESCRIPT FEP Dec 13, [id number] [phone] ANNIE,N E PATIENT FEP [id number] ION RX 2004 0 [id number] AL CAREMARK PRESCRIPT FEPRX Dec 13, [id number] [phone] [place]IL[place] ON,NE PATIENT FEP RX ION 2004 0 75 1 AL CAREMARK(6 PRESCRIPT FEP Dec 13, [id number] [phone] [place] LSON,NE PATIENT [id number]) ION 2004 0 75 1 AL FEP BLUE DENTAL FEP Dec 13, [id number] [phone] ANNIEN E PATIENT DENTAL INSURANCE BLUE 2003 75 3 AL DENTA L FEP BLUE VISION FEP Dec 13 [id number] [phone] ANNIEN E PATIENT VISION BLUE 2003 75 7 AL VISIO N SELEC July 25 [id number] [phone] Ermias VALENCIA E PATIENT WEST T WNR 2020 29 [id number] AL Selected Encounter This section includes the information on record at PA for the Encounter. Date/Time Encounter Type Encounter Description Reason Provider Source Dec 28, 2020 11:27 Outpatient Encounter ADMIN PAT ACTIVTIES AM (MASNONCT) IHE Encounter Template Text not used by PA Plan of Treatment: Future Appointments (+ 6 months) and Future Tests (+/- 45 days) The Plan of Treatment section includes future care activities for the patient from all PA treatmentfacilities. This section includes future appointments and future orders which are active, pending orscheduled.Future Appointments This section includes appointments that were scheduled to occur 6 months from the date of the Encounter, up to a maximum of 20 appointments. The data comes from all PA treatment facilities. Appointment Date/Time Appointment Type Appointment Facili ty Name Jan 05, 2021 12:38 PM AMBULATORY - MEDICINE [facility] Jan 05, 2021 02:10 PM AMBULATORY - PSYCHIATRY [facility] Jan 05, 2021 02:31 PM AMBULATORY - PSYCHIATRY [facility] Feb 23, 2021 01:10 PM AMBULATORY - PSYCHIATRY [facility] Feb 23, 2021 01:30 PM AMBULATORY - PSYCHIATRY [facility] Social History: Smoking Status (Most current) and Tobacco Use (All prior to encounter date) This section includes the most current, and the historical, smoking and tobacco-related health factors from the PA facility where the Encounter took place.Current Smoking Status This section includes the most current smoking, or tobacco-related health factor, from the [place] facility where the Encounter took place. Date/Time Current Smoking Status Comment Facility Jun 09, 2020 02:01 PM VA-TOBACCO USER SOME DAYS [facility] Tobacco Use History This section includes a history of the smoking, or tobacco- related health factors, that were collected on or before the date of the Encounter. The data comes from the [place] facility where the Encounter took place. Date/Time Smoking Status/Tobacco Use Comment Facil it Jun 09, 2020 02:01 PM VA-TOBACCO USE 5 TO 15 YEARS [facility] Jun 09, 2020 02:01 PM VA-TOBACCO USE ADVICE [facility] Jun 09, 2020 02:01 PM VA-TOBACCO USE ROTARY HELPER NO [facility] Jun 09, 2020 02:01 PM VA-TOBACCO USE MED NO [facility] Jun 09, 2020 02:01 PM VA-TOBACCO USER SOME DAYS [facility] Jun 25, 2019 01:39 PM VA-TOBACCO FORMER USER [facility] Jun 25, 2019 01:39 PM VA-TOBACCO QUIT < 1 YEAR S [facility] August 02, 2018 01:49 PM VA-TOBACCO NEVER USED [facility] Jul 07, 2016 10:42 AM LIFETIME NON-TOBACCO USER [facility] Apr 15, 2015 12:38 PM FORMER TOBACCO USE >1Y <7Y [facility] Advance Directives: All historical and current Section Date Range: From patient's date of to the date document was created. This section includes ALL of a patient's completed or amended PA Advance and Rescinded Directives. The entries below indicate that a directive exists for the patient, but an actual copy is not included with this document. The data comes from all [place] facilities. Date Advance Directives Provider Source Feb 22, 2007 ADVANCE DIRECTIVE JAELYN RAPHAEL [facility] Encounter Notes: All associated encounter notes This section contains the clinical notes associated to the Encounter. Date/Time Encounter Note(s) Provider Source Dec 28, 2020 11:28 AM EDUCATION NOTE: LÁZARO BUSTILLOS [facility] LOCAL TITLE: [facility] EDUCATION NOTE STANDARD TITLE: EDUCATION NOTE DATE OF NOTE: DEC 28, 2020@11:28 ENTRY DATE: DEC 28, 2020@11:29:03 AUTHOR: LÁZARO BUSTILLOS EXP COSIGNER: URGENCY: STATUS: COMPLETED The was offered Connected [facility] educati on and support for VA virtual care modalities. Type of Visit: Phone Time spent: ... 5 min. declined Connected Health Education Additional comments: ... Case Management Associate contacted the to see if he w anted to do a VVC test call but he stated now was not a good time. He will c all the [facility] when he is ready. VVC /joey/ LÁZARO BUSTILLOS [facility] TITLE INSPECTOR Signed: 12/28/2020 11:30 Dec 28, 2020 11:27 AM TELEHEALTH NOTE: LÁZARO BUSTILLOS [facility] LOCAL TITLE: CLINICAL VIDEO TELEHEALTH TO HOME STANDARD TITLE: TELEHEALTH NOTE DATE OF NOTE: DEC 28, 2020@11:27 ENTRY DATE: DEC 28, 2020@11:27:22 AUTHOR: LÁZARO BUSTILLOS EXP COSIGNER: URGENCY: STATUS: COMPLETED Damon agrees to PA Video Connect (VVC) and has capability and technology to complete a VVC visit, but needs a test call. /joey/ LÁZARO BUSTILLOS [facility] TITLE INSPECTOR Signed: 12/28/2020 11:28
--- OUTSIDE RECORDS SUMMARY | 2021-10-26 14:45 | XMS_ITS | Encounter Summary ---
:1965 Author Organization Department [facility] rs Address [address] [place] [address] Support Name Relationship Address Phone CHARLES VALENCIA Unavailable [address] [place] [address] [place] RIVAS [address] CHARLES VALENCIA Unavailable [address] [place] [address] [place] R[place] [address] ESTHER [place] [address] Insurance Providers: All historical and current Section [...] Ramirez NAFISA FEP PREFERRED FEP Dec 13, [id number] [phone] AIDA VALENCIA PATIENT PROVIDER STAND 2004 75 [id number] [place] ORGANIZAT IVET ION (PPO) FAMIL Y BC BS [place] PREFERRED FEP Dec 13, [id number] [phone] [facility] AIDA Monson PATIENT FEP PROVIDER STAND 2004 75 3 [place] ORGANIZ[place] IVET I[place] (PP[place]) [place] PREFERRED [place] Oct , 105 [id number] 800 AIDA VALENCIA P ATIENT FEP PROVIDER STAND 2004 75 [phone] [place] ORGANIZAT IVET ION (PPO) [place] PREFERRED FEP Oct , 105 [id number] 800 ANNIENE P ATIENT FEP PROVIDER STAND 2004 75 [phone] [place] ORGANIZAT IVET ION (PPO) FAM [place] PREFERRED FEP Oct , 105 [id number] 800 AIDA VALENCIA P ATIENT FEP (IA) PROVIDER STAND 2004 75 [phone] [place] ORGANIZAT IVET ION (PPO) FAMIL Y [place] PREFERRED FEP Dec 13, [id number] [phone] ANNIE ,NE PATIENT FEP PROVIDER STAND 2003 75 5 [place] ORGANIZAT IVET ION (PPO) FAM [employer] PRESCRIPT FEPRX Dec 13, [id number] [phone] [place] PATIENT FEP ION 2004 0 75 1 AL ([id number]) RX CAREMARK PRESCRIPT FEPRX Dec 13, [id number] [phone] [place] PATIENT FEP ION 2004 0 75 1 AL ([id number]) RX CAREMARK PRESCRIPT FEP Dec 13, [id number] [phone] ANNIE,N E PATIENT FEP [id number] ION RX 2004 0 [id number] AL CAREMARK PRESCRIPT FEPRX Dec 13, [id number] [phone] [place],NE PATIENT FEP RX ION 2004 0 75 1 AL CAREMARK(6 PRESCRIPT FEP Dec 13, [id number] [phone] [place] LSON,[place] PATIENT 74799) ION 2004 0 75 1 AL FEP BLUE DENTAL FEP Dec 13 [id number] [phone] ANNIEN E PATIENT DENTAL INSURANCE BLUE 2003 75 3 AL DENTA L FEP BLUE VISION FEP Dec 13 [id number] [phone] ANNIEN E PATIENT VISION BLUE 2003 75 7 AL VISIO N SELEC July 25 [id number] [phone] Ermias VALENCIA E PATIENT WEST T WNR 2020 29 378 [place] Selected Encounter This section includes the information on record at [place] for the Encounter. Date/Time Encounter Type Encounter Description Reason Provider Source Aug 27, 2021 02:01 Outpatient Encounter PTSD OUTPT RES SPEC PM PROG INDIV IHE Encounter Template Text not used by [place] Plan of Treatment: Future Appointments (+ 6 months) and Future Tests (+/- 45 days) The Plan of Treatment section includes future care activities for the patient from all [place] treatmentfacilities. This section includes future appointments and future orders which are active, pending orscheduled.Future Appointments This section includes appointments that were scheduled to occur 6 months from the date of the Encounter, up to a maximum of 20 appointments. The data comes from all [place] treatment facilities. Appointment Date/Time Appointment Type Appointment Facili ty Name Sep 08, 2021 01:00 PM AMBULATORY - PSYCHIATRY [facility] Sep 08, 2021 01:30 PM AMBULATORY - PSYCHIATRY [facility] Oct 27, 2021 02:00 PM AMBULATORY - PSYCHIATRY [facility] Nov 10, 2021 02:00 PM AMBULATORY - PSYCHIATRY [facility] Nov 17, 2021 02:00 PM AMBULATORY - PSYCHIATRY [facility] Nov 29, 2021 01:00 PM AMBULATORY - PSYCHIATRY [facility] Dec 01, 2021 02:00 PM AMBULATORY - PSYCHIATRY [facility] Dec 08, 2021 02:00 PM AMBULATORY - PSYCHIATRY [facility] Dec 15, 2021 02:00 PM AMBULATORY - PSYCHIATRY [facility] Dec 22, 2021 02:00 PM AMBULATORY - PSYCHIATRY [facility] Dec 29, 2021 02:00 PM AMBULATORY - PSYCHIATRY [facility] Active, Pending, and Scheduled Orders This section includes a listing of several types of active, pending, and scheduled orders, including clinic medications orders, diagnostic test orders, procedure orders and consult orders; where the start date of the order is 45 days before the date of the Encounter or 45 days after the date of the Encounter. The data comes from all [place] treatment facilities. Test Date/Time Test Type Test Details Facility Name Oct 08, 2021 03:03 PM Consult Order MH OUTPT-INTAKE Cons [facility] Social History: Smoking Status (Most current) and Tobacco Use (All prior to encounter date) This section includes the most current, and the historical, smoking and tobacco-related health factors from the [place] facility where the Encounter took place.Current Smoking Status This section includes the most current smoking, or tobacco-related health factor, from the [place] facility where the Encounter took place. Date/Time Current Smoking Status Comment Facility Dec 07, 2010 04:36 PM LIFETIME NON-TOBACCO USER [facility] Tobacco Use History This section includes a history of the smoking, or tobacco- related health factors, that were collected on or before the date of the Encounter. The data comes from the [place] facility where the Encounter took place. Date/Time Smoking Status/Tobacco Use Comment Facil ity Jun 05, 2008 02:09 PM FORMER TOBACCO USE >1Y <7Y [facility] Advance Directives: All historical and current Section Date Range: From patient's date of to the date document was created. This section includes ALL of a patient's completed or amended [place] Advance and Rescinded Directives. The entries below indicate that a directive exists for the patient, but an actual copy is not included with this document. The data comes from all [place] facilities. Date Advance Directives Provider Source Feb 22, 2007 ADVANCE DIRECTIVE JAELYN RAPHAEL [facility] Encounter Notes: All associated encounter notes This section contains the clinical notes associated to the Encounter. Date/Time Encounter Note(s) Provider Source Aug 27, 2021 02:01 PM REPORT OF CONTACT: SAWYER DSOUZA [facility] LOCAL TITLE: PATIENT CONTACT NOTE STANDARD TITLE: REPORT OF CONTACT DATE OF NOTE: AUG 27, 2021@14:01 ENTRY DATE: AUG 27, 2021@14:01:09 AUTHOR: SAWYER DSOUZA EXP COSIGNER: URGENCY: STATUS: COMPLETED Patient contact Name of [place]: TRACI VALENCIA Name/Relationship of Contact if other than Veter an: Date & Time of Contact: Aug@14:01 Type of Contact: Reason for Contact: Vet called via phone and is interested in therapy at [facility]. He wants to come to [facility] due to his current work . He said the call is non-urgent and could wait for a provider to return his call within 24 hours. H is address, email and phone number was verified during the conversation. /joey/ SAWYER DSOUZA Advanced MSA Signed: 08/27/2021 14:03 Receipt Acknowledged By: * AWAITING SIGNATURE * ED OLIVA * AWAITING SIGNATURE * VITA LUCIO * AWAITING SIGNATURE * ERMIAS FRANKEL
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
--- OUTSIDE RECORDS SUMMARY | 2021-10-26 14:46 | XMS_ITS | Encounter Summary ---
:1965 Author Organization Department [facility] rs Address [address] [place] [address] Support Name Relationship Address Phone CHARLES VALENCIA Unavailable [address] [facility] [place] [address] CHARLES VALENCIA Unavailable [address] [place] [address] ESTHER CEDILLO [place] [address] Insurance Providers: All historical and current Section [...] Ramirez NAFISA FEP PREFERRED FEP Dec 13, [id number] [phone] AIDA VALENCIA PATIENT PROVIDER STAND 2004 [id number] [place] ORGANIZAT IVET ION (PPO) FAMIL Y BC BS [place] PREFERRED FEP Dec 13, [id number] [phone] [facility] AIDA Monson PATIENT FEP PROVIDER STAND 2004 75 3 [place] ORGANIZ[place] IVET [place]PP[place]) [place] PREFERRED F[place] Dec 13, 105 [id number] 800 AIDA VALENCIA P ATIENT FEP PROVIDER STAND 2004 75 [phone] [place] ORGANIZAT IVET ION (PPO) [place] PREFERRED F[place] Dec 13, 105 [id number] AIDA VALENCIA P ATIENT FEP PROVIDER STAND 2004 75 [phone] [place] ORGANIZAT IVET ION (PPO) FAM [place] PREFERRED FEP Dec 13, [id number] AIDA VALENCIA P ATIENT FEP (IA) PROVIDER STAND 2004 75 [phone] [place] ORGANIZAT IVET ION (PPO) FAMIL Y [place] PREFERRED FEP Dec 13, [id number] [phone] ANNIE ,NE PATIENT FEP PROVIDER STAND 2003 75 5 [place] ORGANIZAT IVET ION (PPO) FAM CAREMARK PRESCRIPT FEPRX Dec 13, [id number] [phone] [place] PATIENT FEP ION 2004 0 75 1 AL ([id number]) RX CAREMARK PRESCRIPT FEPRX Dec 13, [id number] [phone] [place],NE PATIENT FEP ION 2004 0 75 1 AL ([id number]) RX CAREMARK PRESCRIPT FEP Dec 13, [id number] [phone] ANNIE,N E PATIENT FEP [id number] ION RX 2004 0 [id number] AL CAREMARK PRESCRIPT FEPRX Dec 13, [id number] [phone] [place],NE PATIENT FEP RX ION 2004 0 75 1 AL CAREMARK(6 PRESCRIPT FEP Dec 13, [id number] [phone] [place] LSON,NE PATIENT 09953) ION 2004 0 75 1 AL FEP BLUE DENTAL FEP Dec 13, [id number] [phone] ANNIEN E PATIENT DENTAL INSURANCE BLUE 2003 75 3 AL DENTA L FEP BLUE VISION FEP Dec 13, [id number] [phone] ANNIE,N E PATIENT VISION BLUE 2003 75 7 AL VISIO N SELEC July 25 [id number] [phone] ANNIEN E PATIENT WEST T WNR 2020 29 378 [place] Selected Encounter This section includes the information on record at [place] for the Encounter. Date/Time Encounter Type Encounter Reason Provider Source Description Oct 20, 2021 PRO PHONE TELEPHONE ICD-10-CM F43.20 LUIS ANGEL HUFFMAN 02:14 PM CALL 11-20 MIN Adjustment disorder, unspecified with Provider Comments: Adjustment disorder, unspecified IHE Encounter Template Text not used by [facility] Assessments - Encounter Diagnoses This section includes the primary and secondary diagnoses documented for the Encounter. Date/Time Primary/Secondary Diagnosis Name Provider Source Diagnosis Oct 20, 2021 PRIMARY Adjustment LUIS ANGEL HUFFMAN [place] 02:14 PM disorder, CBOC unspecified Oct 20, 2021 SECONDARY Post-traumatic LUIS ANGEL HUFF[facility] [place] 02:14 PM stress disorder, CBOC chronic Plan of Treatment: Future Appointments (+ 6 months) and Future Tests (+/- 45 days) The Plan of Treatment section includes future care activities for the patient from all [place] [facility] [place]. This section includes future appointments and future orders which are active, pending orscheduled.Future Appointments This section includes appointments that were scheduled to occur 6 months from the date of the Encounter, up to a maximum of 20 appointments. The data comes from all [facility]. Appointment Date/Time Appointment Type Appointment Facili ty Name Oct 27, 2021 02:00 PM AMBULATORY [facility] Nov 10, 2021 02:00 PM AMBULATORY [facility] Nov 17, 2021 02:00 PM [facility]ULATORY [facility] Nov 29, 2021 01:00 PM AMBULATORY [facility] Dec 01, 2021 02:00 PM [facility]ULATORY [facility] Dec 08, 2021 02:00 PM [facility] Dec 15, 2021 02:00 PM [facility]UL[facility]ORY [facility] Dec 22, 2021 02:00 PM [facility] Dec 29, 2021 02:00 PM AMBULATORY [facility] Active, Pending, and Scheduled Orders This section includes a listing of several types of active, pending, and scheduled orders, including clinic medications orders, diagnostic test orders, procedure orders and consult orders; where the start date of the order is 45 days before the date of the Encounter or 45 days after the date of the Encounter. The data comes from all [facility]. Test Date/Time Test Type Test Details Facility Name Oct 08, 2021 03:03 PM Consult Order MH OUTPT-INTAKE [facility] Religion Professor's Choice Advance Directives: All historical and current Section Date Range: From patient's date of to the date document was created. This section includes ALL of a patient's completed or amended [place] Advance and Rescinded Directives. The entries below indicate that a directive exists for the patient, but an actual copy is not included with this document. The data comes from all [facility]. Date Advance Directives Provider Source Feb 22, 2007 ADVANCE DIRECTIVE JAELYN RAPHAEL [facility] Encounter Notes: All associated encounter notes This section contains the clinical notes associated to the Encounter. Date/Time Encounter Note(s) Provider Source Oct 20, 2021 02:14 PM REPORT OF CONTACT: LUIS ANGEL HUFFMAN [facility] LOCAL TITLE: PATIENT CONTACT NOTE STANDARD TITLE: REPORT OF CONTACT DATE OF NOTE: OCT 20, 2021@14:14 ENTRY DATE: OCT 20, 2021@14:14:38 AUTHOR: LUIS ANGEL HUFFMAN EXP COSIGNER: URGENCY: STATUS: COMPLETED Patient contact Name of : TRACI VALENCIA Name/Relationship of Contact if other than Veter an: Date & Time of Contact: Oct@14:14 Type of Contact: Telephone Reason for Contact: Confirm Anger Management Grp Disposition: Highway Landscape Architect called to confirm interest in ang er management group, explain limits of confidentiality/privacy, obtai n consent, update contact info, review group logistics, and answer [place]'s questions about group. [place] received information and confirmed email address. [place] plans to attend group on Wednesday October 27, 2021 at 1400 for 8 sessions . PLAN: Will send Webex link to 's email. /joey/ NICOLE LEE, [facility] Mental Health Carpet Mechanic Signed: 10/20/2021 14:19
--- OUTSIDE RECORDS SUMMARY | 2021-10-26 14:46 | XMS_ITS | Encounter Summary ---
:1965 Author Organization [facility] Address [address] [place] [address] Support Name Relationship Address Phone CHARLES VALENCIA Unavailable [address] [place] [address] [place] [address] CHARLES VALENCIA Unavailable [address] [place] [address] [place] [address] ESTHER [place] [address] Insurance Providers: All historical and current Section [...] Ramirez ANTHAVA FEP PREFERRED FEP Dec 13, 105 [id number] [phone] AIDA VALENCIA PATIENT PROVIDER STAND 2004 75 [id number] [place] ORGANIZAT IVET ION (PPO) FAMIL [place] BC BS [place] PREFERRED FEP Dec 13, [id number] [phone] [facility] AIDA Monson PATIENT FEP PROVIDER STAND 2004 75 3 [place] ORGANIZ[place] IVET I[place] (PP[place]) [place] PREFERRED FEP Oct , 105 [id number] 800 AIDA VALENCIA P ATIENT FEP PROVIDER STAND 2004 75 [phone] [place] ORGANIZAT IVET ION (PPO) [place] PREFERRED FEP Oct , 105 [id number] 800 AIDA VALENCIA P ATIENT FEP PROVIDER STAND 2004 75 [phone] [place] ORGANIZAT IVET ION (PPO) FAM [place] PREFERRED FEP Dec 13, 105 [id number] 800 AIDA VALENCIA P ATIENT FEP (IA) PROVIDER STAND 2004 75 [phone] [place] ORGANIZAT IVET ION (PPO) FAMIL [place] PREFERRED FEP Oct 03, 105 [id number] [phone] ANNIE ,NE PATIENT FEP PROVIDER STAND 2003 75 5 AL ORGANIZAT IVET ION (PPO) FAM CAREMARK PRESCRIPT FEPRX Dec 13, [id number] [phone] [place],NE PATIENT FEP ION 2004 0 75 1 AL ([id number]) RX CAREMARK PRESCRIPT FEPRX Dec 13, [id number] [phone] [place] PATIENT FEP ION 2004 0 75 1 AL ([id number]) RX CAREMARK PRESCRIPT FEP Dec 13, [id number] [phone] ANNIE,N E PATIENT FEP [id number] ION RX 2004 0 [id number] AL CAREMARK PRESCRIPT FEPRX Dec 13, [id number] [phone] WIL[place] ON,NE PATIENT FEP RX ION 2004 0 75 1 AL CAREMARK(6 PRESCRIPT FEP Dec 13, [id number] [phone] [place] LSON,NE PATIENT 62685) ION 2004 0 75 1 AL FEP BLUE DENTAL FEP Dec 13 [id number] [phone] Ermias VALENCIA E PATIENT DENTAL INSURANCE BLUE 2003 75 3 AL DENTA L FEP BLUE VISION FEP Dec 13, [id number] [phone] ANNIEN E PATIENT VISION BLUE 2003 75 7 AL VISIO N SELEC July 25 [id number] [phone] Ermias VALENCIA E PATIENT WEST T WNR 2020 29 378 AL Selected Encounter This section includes the information on record at [place] for the Encounter. Date/Time Encounter Type Encounter Description Reason Provider Source Oct 08, 2021 02:27 Outpatient Encounter [facility] PM - IND IHE Encounter Template Text not used by MD Plan of Treatment: Future Appointments (+ 6 months) and Future Tests (+/- 45 days) The Plan of Treatment section includes future care activities for the patient from all [facility]. This section includes future appointments and future orders which are active, pending orscheduled.Future Appointments This section includes appointments that were scheduled to occur 6 months from the date of the Encounter, up to a maximum of 20 appointments. The data comes from all MD treatment facilities. Appointment Date/Time Appointment Type Appointment Facili ty Name Oct 27, 2021 02:00 PM AMBULATORY - PSYCHIATRY [facility] Nov 10, 2021 02:00 PM AMBULATORY - PSYCHIATRY [facility] Nov 17, 2021 02:00 PM AMBULATORY - PSYCHIATRY [facility] Nov 29, 2021 01:00 PM AMBULATORY - PSYCHIATRY [facility] Dec 01, 2021 02:00 PM AMBULATORY - PSYCHIATRY [facility] Dec 08, 2021 02:00 PM AMBULATORY - PSYCHIATRY [facility] Dec 15, 2021 02:00 PM AMBULATORY - PSYCHIATRY [facility] Dec 22, 2021 02:00 PM AMBULATORY - PSYCHIATRY [facility] Dec 29, 2021 02:00 PM AMBULATORY PS[facility]CH[facility]RY [facility] Active, Pending, and Scheduled Orders This section includes a listing of several types of active, pending, and scheduled orders, including clinic medications orders, diagnostic test orders, procedure orders and consult orders; where the start date of the order is 45 days before the date of the Encounter or 45 days after the date of the Encounter. The data comes from all MD treatment facilities. Test Date/Time Test Type Test Details Facility Name Oct 08, 2021 03:03 PM Consult Order MH OUTPT-INTAKE Cons JUAN W[facility] Professor Of French's Choice Social History: Smoking Status (Most current) and Tobacco Use (All prior to encounter date) This section includes the most current, and the historical, smoking and tobacco-related health factors from the MD facility where the Encounter took place.Current Smoking Status This section includes the most current smoking, or tobacco-related health factor, from the MD facility where the Encounter took place. Date/Time Current Smoking Status Comment Facility Sep 08, 2021 01:00 PM MD-TOBACCO NEVER USED LOC[facility] Tobacco Use History This section includes a history of the smoking, or tobacco- related health factors, that were collected on or before the date of the Encounter. The data comes from the MD facility where the Encounter took place. Date/Time Smoking Status/Tobacco Use Comment Facil ity Dec 07, 2010 04:36 PM LIFETIME NON-TOBACCO USER [facility] Jun 05, 2008 02:09 PM FORMER TOBACCO USE >1Y <7Y [facility] Advance Directives: All historical and current Section Date Range: From patient's date of to the date document was created. This section includes ALL of a patient's completed or amended [place] Advance and Rescinded Directives. The entries below indicate that a directive exists for the patient, but an actual copy is not included with this document. The data comes from all MD facilities. Date Advance Directives Provider Source Feb 22, 2007 ADVANCE DIRECTIVE JAELYN R[facility]HAEL [facility] Encounter Notes: All associated encounter notes This section contains the clinical notes associated to the Encounter. 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 listed preferred date (s) as 10/19/2021 PM, Second Choice 10/11 PM, Third Choice 10/21/2021 PM. Please call [place] at [phone] to schedule ap pointment. A/MSA- Please contact and addendum this note with result. /servando JUAREZ Advanced MSA Signed: 10/08/2021 14:29 Receipt Acknowledged By: 10/08/2021 14:56 /joey/ TENNILLE GUZMÁN PA-C PHYSICIAN KEY BED INSTALLER, MENTAL HEALTH 10/08/2021 ADDENDUM STATUS: COMPLETED Tiller Worker attempted to return 's call on 09/11 12/02 at 1508. Call went to and mailbox is full so telegraphic typewriter installer could not leave me ssage. [facility] is scheduled for psychotherapy intake on 11/29/[address] Chaves. If he would like a sooner appointment ti me a [facility] referral or community care consult could be considered. Tiller Worker will attempt additional outreach. /joey/ TENNILLE GUZMÁN PA-C PHYSICIAN KEY BED INSTALLER, MENTAL HEALTH Signed: 10/08/2021 15:13 10/11/2021 ADDENDUM STATUS: COMPLETED Tiller Worker contacted shaista and discussed upcoming therapy intake appointment. He is interested in care sooner than 11/29/21 schedule d intake. He denies f/u from [facility] or [facility] as discussed in intake with telegraphic typewriter installer. [facility] is still interested in these services. He prefer to keep care at [facility] if possible, but as no soone r intake appt available at this time he elected for [facility] referral. PLAN: 1. Tiller Worker sent referral to [facility] 2. Tiller Worker to f/u from 09/08/21 referrals for magaly r management and VJO services 3. Will plan to keep 11/29/21 intake at this time /servando GUZMÁN PA-C PHYSICIAN KEY BED INSTALLER, MENTAL HEALTH Signed: 10/11/2021 14:27 10/11/2021 ADDENDUM STATUS: COMPLETED Call patient regarding his anger management refe rral, informing him about the extensive waitlist. Currently, patient is estima mary to start group in at the earliest depend ing on availability. Patient expressed understanding of this and re ported interest in engaging in individual therapy in the meantime. He reported significant stress con tributing to irritability and anger. Encouraged patient to follow up with his medical team should he have other concerns and needs while waiting for anger management group. [facility] is scheduled for intake on and was encouraged by provider to follow-up with [facility] for sooner availability. /servando Jay PhD, LP Signed: 10/11/2021 15:23 Receipt Acknowledged By: 10/12/2021 07:54 /servando GUZMÁN PA-C PHYSICIAN KEY BED INSTALLER, MENTAL HEALTH 10/18/2021 ADDENDUM STATUS: COMPLETED Called patient regarding ref erral to AM group. Informed patient there was sooner availability than anticipated and patient could start October group. Patient expressed appreciation of this and consented to recieve email with link and manual via mail. /servando Jay PhD, LP Signed: 10/18/2021 12:54 Receipt Acknowledged By: * AWAITING SIGNATURE * TENNILLE GUZMÁN * AWAITING SIGNATURE * LUISA NGEL HUFFMAN * AWAITING SIGNATURE * ERMIAS BABB
--- OUTSIDE RECORDS SUMMARY | 2021-10-26 14:46 | XMS_ITS | Encounter Summary ---
:1965 Author Organization Department [facility] rs Address [address] [place] [address] Support Name Relationship Address Phone CHARLES VALENCIA Unavailable [address] [place] [address] CHARLES VALENCIA Unavailable [address] [place] [address] ESTHER [place] [address] Insurance Providers: All historical and current Section [...] Ramirez NAFISA FEP PREFERRED FEP Dec 13, [id number] [phone] AIDA VALENCIA PATIENT PROVIDER STAND 2004 75 [id number] AL ORGANIZAT IVET ION (PPO) FAMIL [place] BS [place] PREFERRED FEP Dec [address] [id number] [phone] [facility] AIDA Monson PATIENT FEP PROVIDER STAND 2004 75 3 AL ORGANIZAT IVET ION (PPO) [place] PREFERRED FEP Dec 13, [id number] 800 AIDA VALENCIA P ATIENT FEP PROVIDER STAND 2004 75 [phone] AL ORGANIZAT IVET ION (PPO) FAM [place] PREFERRED FEP Dec 13, [id number] 800 AIDA VALENCIA P ATIENT FEP PROVIDER STAND 2004 75 [phone] AL ORGANIZAT VIET ION (PPO) FAM [place]BS [place] PREFERRED FEP Dec 13, [id number] 800 AIDA VALENCIA P ATIENT FEP (IA) PROVIDER STAND 2004 75 [phone] [place] ORGANIZAT IVET ION (PPO) FAMIL Y [place] PREFERRED FEP Dec 13, 105 [id number] [phone] ANNIE ,NE PATIENT FEP PROVIDER STAND 2003 75 5 AL ORGANIZAT IVET ION (PPO) FAM CAREMARK PRESCRIPT FEPRX Dec 13, [id number] [phone] [place]IL[place] PATIENT FEP ION 2004 0 75 1 AL ([id number]) RX CAREMARK PRESCRIPT FEPRX Dec 13, [id number] [phone] WIL[place] ON,NE PATIENT FEP ION 2004 0 75 1 AL ([id number]) RX CAREMARK PRESCRIPT FEP Dec 13, [id number] ANNIE,N E PATIENT FEP [id number] ION RX 2004 0 [id number] AL CAREMARK PRESCRIPT FEPRX Dec 13, [id number] [phone] WILS ON,NE PATIENT FEP RX ION 2004 0 75 1 AL CAREMARK(6 PRESCRIPT FEP Dec 13, [id number] [phone] [place] LSON,NE PATIENT 05501) ION 2004 0 75 1 AL FEP BLUE DENTAL FEP Dec 13, [id number] [phone] ANNIEN E PATIENT DENTAL INSURANCE BLUE 2003 75 3 AL DENTA L FEP BLUE VISION FEP Dec 13 [id number] [phone] ANNIE,N E PATIENT VISION BLUE 2003 75 7 AL VISIO N SELEC July 25 [id number] [phone] Ermias VALENCIA E PATIENT SOMIS T WNR 2020 29 378 AL Selected Encounter This section includes the information on record at [place] for the Encounter. Date/Time Encounter Type Encounter Reason Provider Source Description Oct 14, 2021 PRO PHONE TELEPHONE ICD-10-CM F43.10 CAROLYN SANCHEZ 12:15 PM CALL 11-20 MIN Post-traumatic R stress disorder, unspecified with Provider Comments: Post-Traumatic Stress Disorder, unspecified IHE Encounter Template Text not used by [place] Assessments - Encounter Diagnoses This section includes the primary and secondary diagnoses documented for the Encounter. Date/Time Primary/Secondary Diagnosis Name Provider Source Diagnosis Oct 14, 2021 PRIMARY Post-traumatic CAROLYN SANCHEZ [facility] 12:15 PM stress disorder, W R CBOC unspecified Oct 14, 2021 SECONDARY Problems related [facility] PM to other legal W R CBOC circumstances Plan of Treatment: Future Appointments (+ 6 months) and Future Tests (+/- 45 days) The Plan of Treatment section includes future care activities for the patient from all [facility]. This section includes future appointments and future orders which are active, pending orscheduled.Future Appointments This section includes appointments that were scheduled to occur 6 months from the date of the Encounter, up to a maximum of 20 appointments. The data comes from all [facility]. Appointment Date/Time Appointment Type Appointment Facili ty Name Oct 27, 2021 02:00 PM AMBULATORY [facility] Nov 10, 2021 02:00 PM [facility]BUL[facility]ORY [facility] Nov 17, 2021 02:00 PM AMBULATORY [facility] Nov 29, 2021 01:00 PM AMBULATORY [facility] Dec 01, 2021 02:00 PM AMBULATORY [facility] Dec 08, 2021 02:00 PM [facility] Dec 15, 2021 02:00 PM AMBULATORY [facility] Dec 22, 2021 02:00 PM [facility] Dec 29, 2021 02:00 PM [facility] Active, Pending, and Scheduled Orders This section includes a listing of several types of active, pending, and scheduled orders, including clinic medications orders, diagnostic test orders, procedure orders and consult orders; where the start date of the order is 45 days before the date of the Encounter or 45 days after the date of the Encounter. The data comes from all [facility]. Test Date/Time Test Type Test Details Facility Name Oct 08, 2021 03:03 PM Consult Order MH OUTPT-INTAKE [facility] Hot Walker's Choice Advance Directives: All historical and current Section Date Range: From patient's date of to the date document was created. This section includes ALL of a patient's completed or amended [place] Advance and Rescinded Directives. The entries below indicate that a directive exists for the patient, but an actual copy is not included with this document. The data comes from all [facility]. Date Advance Directives Provider Source Feb 22, 2007 ADVANCE DIRECTIVE JAELYN RAPHAEL [facility] Encounter Notes: All associated encounter notes This section contains the clinical notes associated to the Encounter. Date/Time Encounter Note(s) Provider Source Oct 14, 2021 12:15 PM REPORT OF CONTACT: [facility]I [facility] LOCAL TITLE: PATIENT CONTACT NOTE STANDARD TITLE: REPORT OF CONTACT DATE OF NOTE: OCT 14, 2021@12:15 ENTRY DATE: OCT 14, 2021@15:28:16 AUTHOR: SHARI SANCHEZ COSIGNER: URGENCY: STATUS: COMPLETED Patient contact Name of Hobson: TRACI VALENCIA Name/Relationship of Contact if other than Veter an: Date & Time of Contact: Oct@12:15 Type of Contact: Telephone Length of Contact: 20 minutes Diagnosis: PTSD, Problems related to legal circu mstances Reason for Contact: MASON contacted Hobson follow ing referral from another [place] provider. Hobson was appreciative of the call. He confirmed a recent assault charge in [facility]. He has retained the se rvices of a private staff attorney and has court next month. Hobson inquired about [address] as a potential option to resolve his charge. [facility] does not currently have a Veterans Court. MASON did provide information on the Veterans Restorative Justice Act - legislation that was p assed in [place] in 2020 to assist justice involved Veterans. Strongly encou raged to have discussion with his staff attorney about this law and whether he would be eligible for sentencing under it, which would give him e opportunity to keep a conviction off his record and not have any addit ional halfway time. Hobson agreed to discuss with his staff attorney. We also discussed treatment needs. Hobsonyara birch rmed a history of PTSD and TBI. He recently connected with mental health se rvices at the [place] and confirmed a plan to start engaging in individual therapy, couples counseling and anger management. He is scheduled to meet [facility] next month. He did not discuss any need for chemical health ser vices. feels good about his current treatment plan. Hobson was encouraged to call [facility] with addition al questions, and he was also encouraged to give [employer]'s contact information to his staff attorney. Hobson appreciative of the information provided and agr eed to keep in contact as needed. /joey/ SHARI SANCHEZ LCSW Veterans Justice Outreach Program Signed: 10/14/2021 15:36 Receipt Acknowledged By: * AWAITING SIGNATURE * TENNILLE GUZMÁN * AWAITING SIGNATURE * MARIA L DALY
== END 2021-10-26 14:38 | disposition home or self-care (01) ==
DX: I63.9 Cerebral infarction, unspecified (principal); R55 Syncope and collapse; I25.2 Old myocardial infarction
CPT/HCPCS: 70553; A9575

== ENCOUNTER 2022-12-28 14:45 | Outpatient (RCR) | payer OTHER, SELFPAY ==
--- NOTE | 2022-09-19 12:26 | REH.OT ---
Patient did not come to scheduled EVAL today. Next session is scheduled for Monday09/21/22
== END 2023-01-18 13:46 | disposition home or self-care (01) ==
PROVIDERS: PCP Family Medicine; Visit Provider Nurse Practitioner Adult Health
DX: M79.602 Pain in left arm (principal); Z51.89 Encounter for other specified aftercare
CPT/HCPCS: 97035; 97110; 97140; 97165; X5282

== ENCOUNTER 2023-11-27 15:14 | Outpatient (RCR) | payer OTHER, SELFPAY | END 2024-03-15 09:42 | disposition home or self-care (01) | PROVIDERS: PCP Family Medicine; Visit Provider Family Medicine | DX: M25.522 Pain in left elbow (principal); G89.29 Other chronic pain; M62.9 Disorder of muscle, unspecified; R53.1 Weakness; Z51.89 Encounter for other specified aftercare | CPT/HCPCS: 97110; 97161 ==